=== PATIENT | female | born 1955 | race Caucasian/White ===

== ENCOUNTER 2019-04-04 11:46 | Inpatient (IN) | payer MEDICARE ==
[~2019-04-04] VITALS: Ht 157.5 cm; Wt 88.0 kg
[~2019-04-04 11:46] MED LIST: ADV25050 INH; ALBU8.5H5 IH; CARI350T29 PO; CLOP75TA27 PO; HYDR-762 PO; HYDR25TA6 PO; LISI10TA2 PO; POTA8TAB46 PO; ZOC10 PO; ZOLP5TAB PO
[2019-04-04] MEDS ORDERED: HYDROmorphONE 2 MG/ML SYG IV STA (12:02)
[2019-04-04] MEDS ORDERED: NITROGLYCERIN 2% 1 GM OINT PKT TD STA (12:02)
[2019-04-04] MEDS ORDERED: NITROGLYCERIN (SL) 0.4 MG TAB SL PRN ×2 (12:30→15:00)
[2019-04-04] MEDS ORDERED: ASPI-817 PO (12:37)
[2019-04-04] MEDS ORDERED: LISI1TAB6 PO (12:38)
[2019-04-04] MEDS ORDERED: HYDR-3980 PO (12:38)
[2019-04-04] MEDS ORDERED: CARV3.1260 PO (12:39)
[2019-04-04] MEDS ORDERED: ALBU18HF INHALATION (12:39)
[2019-04-04] MEDS ORDERED: SIMV10TA PO (12:39)
[2019-04-04] MEDS ORDERED: POTA8CAP PO (12:40)
[2019-04-04] MEDS ORDERED: CLOP75TA19 PO (12:40)
[2019-04-04] MEDS ORDERED: DULO60CA59 PO (12:40)
[2019-04-04] MEDS ORDERED: ADV25050 INHALATION (12:41)
[2019-04-04] MEDS ORDERED: ZOLP10TA PO (12:41)
[2019-04-04] MEDS ORDERED: CARI350T29 PO (12:41)
--- NOTE | 2019-04-04 14:27 | ERD ---
ER Documentation Chief Complaint Chief Complaint CHEST PAIN FOR THE PAST FEW HRS, NO N/V. NO SIGNS OF SOB . 12 LEAD HPI Patient is a 63-year-old female with cardiac disease and stent who presents with chest pain. She was brought in by ambulance. She says that the pain is 9 out of 10. She has chest pain as well as midepigastric pain. She was given aspirin nitroglycerin by paramedics without relief. Upon review of old medical records this is the patient's first visit to the emergency department. Review of the emergency department information exchange system shows visits to 4 separate emergency departments for a total of 5 visits over the past 1 year. Her primary doctor is Dr. Beck. ROS All systems reviewed and are negative except as per history of present illness. Medications Home Meds Reported Medications Zolpidem Tartrate* (Ambien*) 10 Mg Tablet, 10 MG PO QHS PRN for INSOMNIA, TAB 04/04/19 Salmeterol Xinaf/Fluticasone* (Advair*) 250-50 Diskus Inhaler, 1 INH INHALATION BID, #1 INHALER 04/04/19 Carisoprodol* (Carisoprodol*) 350 Mg Tablet, 350 MG PO Q8 PRN for MUSCLE SPASMS, TAB 04/04/19 Potassium Chloride* (Potassium Chloride*) 8 Meq Capsule.er, 8 MEQ PO DAILY, CAP 04/04/19 Duloxetine Hcl* (Duloxetine Hcl*) 60 Mg Capsule.dr, 60 MG PO DAILY, #30 CAP 04/04/19 Clopidogrel Bisulfate* (Clopidogrel Bisulfate*) 75 Mg Tablet, 75 MG PO DAILY, #30 TAB 04/04/19 Carvedilol* (Carvedilol*) 3.125 Mg Tablet, 3.125 MG PO BID, #60 TAB 04/04/19 Albuterol Sulfate* (Ventolin HFA*) 18 Gm Hfa.aer.ad, 2 PUFF INHALATION Q4H, #1 INHALER 04/04/19 Simvastatin* (Zocor*) 10 Mg Tablet, 10 MG PO QHS, #30 TAB 04/04/19 Hydrocodone/Acetaminophen ([place] 10-325 Tablet) 1 Each Tablet, 1 EACH PO BID, TAB 04/04/19 Lisinopril/Hydrochlorothiazide (Lisinopril-Hctz 20-12.5 mg Tab) 1 Each Tablet, 1 EACH PO DAILY, TAB 04/04/19 Aspirin* (Aspirin* EC) 81 Mg Tablet.dr, 81 MG PO DAILY, TAB 04/04/19 Discontinued Reported Medications Potassium Chloride (K-Tab ER) 8 Meq Tablet.er, 8 MEQ PO DAILY for 30 Days, #30 02/08/19 Hydrochlorothiazide* (Hydrochlorothiazide*) 25 Mg Tab, 25 MG PO DAILY for 30 Days 02/08/19 Carisoprodol* (Carisoprodol*) 350 Mg Tablet, 350 MG PO DAILY 02/08/19 Zolpidem Tartrate* (Ambien*) 5 Mg Tablet, 5 MG PO HS for INSOMNIA, TAB 05/16/14 Albuterol Sulfate* (Albuterol Sulfate* HFA) 8.5 Gm Hfa.aer.ad, 2 PUFF IH Q6, EA 04/29/14 Salmeterol Xinaf/Fluticasone* (Advair*) 250-50 Diskus Inhaler, 1 PUFF INH BID, INH 04/29/14 Hydrocodone Bit-Acetaminophen* ([place]*) 1 Tab Tablet, 1 TAB PO Q4H PRN for PAIN, TAB 04/29/14 Simvastatin (Simvastatin) 10 Mg Tablet, 10 MG PO HS, TAB 04/29/14 Lisinopril* (Lisinopril*) 10 Mg Tablet, 10 MG PO DAILY, TAB 04/29/14 Clopidogrel Bisulfate (Clopidogrel) 75 Mg Tablet, 75 MG PO DAILY, TAB 04/29/14 Allergies Allergies: Coded Allergies: ciprofloxacin (Unverified Allergy, Severe, 04/04/19) cephalexin (Unverified Allergy, Intermediate, REDNESS, SWELLING, ITCHING, 04/04/19) morphine (Unverified Allergy, Intermediate, RASH, 04/04/19) ondansetron (Unverified Allergy, Mild, ITCHY, 04/04/19) PMhx/Soc History of Surgery: Yes (LUMBAR SURGERY,CARDIAC STENTS X2,HYSTERECTOMY, right carotid endarterectomy) Anesthesia Reaction: No Hx Neurological Disorder: No Hx Respiratory Disorders: Yes (ASTHMA, COPD) Hx Cardiac Disorders: Yes (HTN) Hx Psychiatric Problems: Yes (ANXIETY,DEPRESSION) Hx Miscellaneous Medical Probl: No Hx Alcohol Use: No Hx Substance Use: No Hx Tobacco Use: No Smoking Status: Never smoker FmHx Family History: coronary disease Physical Exam Vitals Vital Signs Date Temp Pulse Resp B/P (MAP) Pulse Ox O2 O2 Flow FiO2 Time Delivery Rate 04/04/19 95 16 125/85 99 Room Air 13:41 (98) 04/04/19 98.5 110 18 95/54 (68) 97 12:02 Physical Exam Const: Moderate distress Head: Atraumatic Eyes: Normal Conjunctiva ENT: Normal External Ears, Nose and Mouth. Neck: Full range of motion. No meningismus. Resp: Clear to auscultation bilaterally Cardio: Regular rate and rhythm, no murmurs Abd: Soft, non tender, non distended. Normal bowel sounds Skin: No petechiae or rashes Back: No midline or flank tenderness Ext: No cyanosis, or edema Neur: Awake and alert Psych: Normal Mood and Affect Result Diagram: 04/04/19 1240 04/04/19 1240 Results 24 hrs Laboratory Tests Test 04/04/19 12:40 White Blood Count 11.3 10^3/ul Red Blood Count 5.25 10^6/ul Hemoglobin 14.0 g/dl Hematocrit 44.0 % Mean Corpuscular Volume 83.8 fl Mean Corpuscular Hemoglobin 26.7 pg Mean Corpuscular Hemoglobin Concent 31.8 g/dl Red Cell Distribution Width 15.9 % Platelet Count 391 10^3/UL Mean Platelet Volume 9.6 fl Immature Granulocytes % 0.500 % Neutrophils % 66.4 % Lymphocytes % 21.9 % Monocytes % 8.0 % Eosinophils % 2.4 % Basophils % 0.8 % Nucleated Red Blood Cells % 0.0 /100WBC Immature Granulocytes # 0.060 10^3/ul Neutrophils # 7.5 10^3/ul Lymphocytes # 2.5 10^3/ul Monocytes # 0.9 10^3/ul Eosinophils # 0.3 10^3/ul Basophils # 0.1 10^3/ul Nucleated Red Blood Cells # 0.0 10^3/ul Sodium Level 138 mmol/L Potassium Level 4.2 mmol/L Chloride Level 103 mmol/L Carbon Dioxide Level 24 mmol/L Anion Gap 11 Blood Urea Nitrogen 14 mg/dl Creatinine 0.62 mg/dl Est Glomerular Filtrat Rate mL/min > 60 mL/min Glucose Level 113 mg/dl Calcium Level 9.6 mg/dl Total Bilirubin 0.5 mg/dl Direct Bilirubin 0.00 mg/dl Indirect Bilirubin 0.5 mg/dl Aspartate Amino Transf (AST/SGOT) 47 IU/L Alanine Aminotransferase (ALT/SGPT) 55 IU/L Alkaline Phosphatase 110 IU/L Troponin I < 0.012 ng/ml Total Protein 8.3 g/dl Albumin 4.3 g/dl Lipase 75 U/L Current Medications Medications Dose Sig/Farrah Start Time Status Last (Trade) Ordered Route PRN Stop Time Admin Dose Reason Admin 1 inch ONCE STAT 04/04/19 DC Nitroglycerin TD 12:02 04/04/19 12:05 (Nitroglyceri n 2% Oint) 1 tab Q5M UP TO 3 04/04/19 Nitroglycerin DOSES PRN 12:30 SL .CHEST (Nitroglyceri PAIN n (Sl Tab) 0.4 Mg) 1 mg ONCE STAT 04/04/19 DC 04/04/19 Hydromorphone IV 12:02 13:15 HCl 04/04/19 12:05 (Dilaudid) 650 mg ER BRIDGE 04/04/19 Acetaminophen PRN PO 14:30 (Tylenol .MILD PAIN 04/05/19 14:29 Tab) 1-3 OR TEMP Procedures/MDM EKG #1 read by me: Rate/Rhythm: Regular rate and rhythm at a normal rate Intervals: Normal Impression: ST depressions diffusely EKG #2 read by me: Rate/Rhythm: Regular rate and rhythm at a normal rate Intervals: Normal Impression: ST depressions diffusely Chest x-ray read by radiology. Patient is a 63-year-old female with cardiac risk factors who presents with chest pain. She has an abnormal EKG with ST depressions. I doubt STEMI but I am concerned about acute coronary syndrome. Initial troponin is negative. She was given aspirin and nitroglycerin by paramedics. I gave her Dilaudid here in the emergency department as she has an allergy to morphine. She will be admitted to the care of Dr. Beck to a telemetry observation bed. I doubt pulmonary embolism, aortic dissection, pneumonia, or pneumothorax. Departure Diagnosis: Primary Impression: Chest pain Chest pain type: unspecified Qualified Codes: R07.9 - Chest pain, unspecified Condition: AUBREY Lobo MD Apr 04, 2019 14:27
[2019-04-04] MEDS ORDERED: ACETAMINOPHEN 325 MG TAB PO PRN ×2 (14:30→15:00)
[2019-04-04] MEDS ORDERED: NACL 0.9% 3 ML SYG IV SCH (15:00)
[2019-04-04] MEDS ORDERED: ALBUTEROL HFA 8 GM INHALER INH PRN (15:00)
[2019-04-04] MEDS ORDERED: DOCUSATE SODIUM 100 MG CAP PO PRN (15:00)
[2019-04-04] MEDS ORDERED: HYDROCODONE/APAP (10/325) TAB PO PRN (15:00)
[2019-04-04] MEDS: ENOXAPARIN 40 MG/0.4 ML SYG SC SCH ×2 (15:10→15:22)
[2019-04-04] MEDS: METOCLOPRAMIDE 10 MG INJ IV PRN (15:10)
[2019-04-04] MEDS: HYDROmorphONE 2 MG/ML SYG IV PRN ×2 (15:13→20:36)
[2019-04-04 17:43] VITALS: PULSE 95
[2019-04-04 17:44] VITALS: BP 135/92; PULSE 94; RESP 20
[2019-04-04 17:46] VITALS: Ht 157.5 cm; Wt 88.0 kg
--- NOTE | 2019-04-04 18:03 | HP ---
DATE OF ADMISSION: 04/04/2019 REASON FOR ADMISSION: Chest pain, rule out acute coronary syndrome. HISTORY OF PRESENT ILLNESS: The patient is a 63-year-old female with history of hypertensio n, dyslipidemia, [place] 9 years ago, status post PCI with 1 stent was placed, former smoker who presents to the emergency department at [facility] complaining of abdominal pain that radiated to the shoulder in the morning with associated dizziness, mild diaphoresis and nausea. The patient was con cerned that she does have extensive cardiac history and family history, so she presented to the [facility] for evaluation. In the ER, the patient was found to have ischemic like EKG showing sinus rhythm with occasional PVCs, septal infarct, age undetermined, ST-T wave abnormality, consider inferior and anterior ischemia. Troponin x1 was negative. It was decided to admit the patient for further care. The patient in the ER received Dilaudid and nitroglycerin patch. Blood pressure was 95/54, pulse 11 0, respirations 18, temperature 98.5, saturation was 97%. The patient states that she was just seen in another emergency department 3 weeks ago and she was admitted for the same and she underwent a str ess test which was negative. The patient cannot recall which hospital. She denies any fever, chills , weakness or numbness. The patient needs further care. PAST MEDICAL HISTORY: Includes hypertension, dyslipidemia, NC, coronary artery disease, status post PCI 9 years ago. PAST SURGICAL HISTORY: Includes: 1. Total abdominal hysterectomy complicated by colonic trauma. 2. Fusion surgery in the L-spine. ALLERGIES: 1. CIPRO. 2. ZOFRAN. 3. MORPHINE. MEDICATIONS: Include the followin. Advair 250/50 one puff b.i.d. 2. Potassium chloride 8 mEq daily. 3. Ambien 10 mg at bedtime p.r.n. 4. [place] 10/325 b.i.d. 5. Duloxetine 60 mg b.i.d. 6. Aspirin 81 mg daily. 7. Zocor 10 mg at bedtime. 8. Lisinopril and hydrochlorothiazide 20/12.5 daily. 9. Coreg 3.125 b.i.d. 10. Plavix 75 mg daily. 11. [place] 350 q.8 p.r.n. 12. Ventolin HFA 2 puffs q.4 p.r.n. SOCIAL HISTORY: She stopped smoking 10 years ago, but did not smoke a lot. Alcohol: Socially. IV drug abuse: Denies. The patient is single. She has 6 kids. The patient is currently disabled due to her heart condition and back pain. FAMILY HISTORY: Mother from [place]. She has 3 brothers who also from heart disease and had he art surgery. Father from colon cancer at age 57. The patient never had a colonoscopy, but she said she had a stool tested for blood and was negative, more likely 2 years ago. REVIEW OF SYSTEMS: Per HPI. PHYSICAL EXAMINATION: VITAL SIGNS: Temperature is 98.5, pulse 95, respirations 16, blood pressure 125/85, saturation 99% o n room air. GENERAL: The patient is in no acute distress. HEENT: Normocephalic, atraumatic. Slightly pale. NECK: No JVD. CARDIOVASCULAR: S1, S2. Regular rate. LUNGS: Clear. ABDOMEN: Soft. Slight epigastric discomfort. EXTREMITIES: There is no clubbing, cyanosis or edema. LABORATORY DATA: White count is 11.3, hemoglobin 14, hematocrit 44, platelet count 391, neutrophils 66%, lymphs 22%. Chemistry: Sodium is 138, potassium 4.2, chloride 103, bicarbonate 24, BUN is 14, creatinine 0.62, glucose of 113. T bilirubin is 0.5, AST slightly elevated at 47, ALT 55, alkaline p hosphatase 110. Troponin negative. Total protein 8.3. Lipase 75. DIAGNOSTIC DATA: Chest x-ray shows no definite abnormalities identified. ASSESSMENT AND PLAN: This is a 63-year-old female with history of coronary artery disease, hypertension, dyslipidemia, presented with somewhat atypical chest pain, basically symptoms of upper abdominal pain radiating to the shoulders which she did had before in the previous myocardial infarct ion. 1. Chest pain, rule out acute coronary syndrome. Serial troponins. The patient does have an ischem ic like EKG. The patient will be placed on nitroglycerin patch, aspirin, beta blockers, statins. Ca rdiology will be consulted. We will obtain a 2D echo. We need to review the patient's recent stress test or workup which was done. Further recommendation per cardiology. 2. Mild leukocytosis with abdominal pain. We will rule out urinary tract infection. Urine studies will be obtained. 3. The patient will be placed on Protonix for gastrointestinal prophylaxis and Lovenox for deep veno us thrombosis prophylaxis. 4. Chronic back pain. Continue p.r.n. [place] and pain control. 5. Depression. Continue Cymbalta. 6. History of chronic obstructive pulmonary disease and/or asthma. Continue Advair. Breathing trish tment p.r.n. will be provided. We will follow closely. Dictated By: PUJA VALDIVIA/MAGGIE Conf#: [id number] DID#: [id number] CC: GURMEET VIVAS MD;*EndCC*
[2019-04-04] MEDS: HYDROCODONE/APAP (5/325) TAB PO PRN (19:00)
--- NOTE | 2019-04-04 19:12 | CONS ---
Assessment/Plan Assessment/Plan Hospital Course (Demo Recall) Chest pain: Appears to be atypical and anginal. Patient also with recent negative stress test. Coronary artery disease with history of AR and PCI 2010 Hypertension Abnormal EKG appears to be chronic is been reported in the previous years as well Asthma probably asthma exacerbation possibly COPD Ex-smoker Dyslipidemia Recommendations: Continue with the Plavix. Risk factor modification including statin to be continued and adjusted to the goal LDL of less than 70 GI work-up as per internal medicine. I will discontinue the Coreg given her active wheezing and pulmonary status. We will rule out for myocardial infarction with serial cardiac enzyme Pulmonary work-up and treatment as per internal medicine. Thank you for his referral. We will continue to follow along with you GURMEET VIVAS MD [facility] Consultation Date/Type/Reason Admit Date/Time Apr 04, 2019 at 14:18 Date of Consultation: Apr 04, 2019 Type of Consult Cardiology Reason for Consultation cp Requesting Provider: PUJA BINGHAM MD Date/Time of Note DATE: 04/04/19 TIME: 19:03 Hx of Present Illness Interventional cardiology consultation note Chief complaint: chest / abd / back pain Reason for consult: chest pain .CAD History of present illness: Thank you for this referral. History was informed the patient will be asked review of the old chart. Discussion with Dr. Bingham and staff. The patient is a 63-year-old female with history of hypertension, asthma dyslipidemia, coronary artery disease status post AR and PCI in 2010 , former smoker who presents to the emergency department at [facility] complaining of epigastric abdominal pain chest pain and back pain. Patient has also been coughing and has been shortness of breath and wheezing. Her chest pain has resolved now. With her cardiac history she has been concerned about her cardiac and came to emergency room. Her old record was reviewed patient has multiple admission to the hospital for chest pain work-up has been negative over the past few years since as far as 2013 that I could go back in our record. She also has had a coronary angiography done apparently a few years ago which was negative at [facility] per review of the old chart. She also reports to me that she has had a stress test in 2 weeks on outside facility which was told was normal as well. He also complains of shortness of breath and cough and wheezing which has been getting worse. PAST MEDICAL HISTORY: Includes hypertension, dyslipidemia, AR, coronary artery disease, status post PCI 9 years ago. Asthma PAST SURGICAL HISTORY: Includes: 1. Total abdominal hysterectomy complicated by colonic trauma. 2. Fusion surgery in the L-spine. ALLERGIES: 1. CIPRO. 2. ZOFRAN. 3. MORPHINE. MEDICATIONS: Include the followin. Advair 250/50 one puff b.i.d. 2. Potassium chloride 8 mEq daily. 3. Ambien 10 mg at bedtime p.r.n. 4. [place] 10/325 b.i.d. 5. Duloxetine 60 mg b.i.d. 6. Aspirin 81 mg daily. 7. Zocor 10 mg at bedtime. 8. Lisinopril and hydrochlorothiazide 20/12.5 daily. 9. Coreg 3.125 b.i.d. 10. Plavix 75 mg daily. 11. Soma 350 q.8 p.r.n. 12. Ventolin HFA 2 puffs q.4 p.r.n. SOCIAL HISTORY: She stopped smoking 10 years ago, but did not smoke a lot. Alcohol: Socially. IV drug abuse: Denies. The patient is single. She has 6 kids. The patient is currently disabled due to her heart condition and back pain. FAMILY HISTORY: Mother from [place]. She has 3 brothers who also from heart disease and had heart surgery. Father from colon cancer at age 57. Review of system: Patient denies all others except for above-mentioned Past Medical History Home Meds Reported Medications Zolpidem Tartrate* (Ambien*) 10 Mg Tablet, 10 MG PO QHS PRN for INSOMNIA, TAB 04/04/19 Salmeterol Xinaf/Fluticasone* (Advair*) 250-50 Diskus Inhaler, 1 INH INHALATION BID, #1 INHALER 04/04/19 Carisoprodol* (Carisoprodol*) 350 Mg Tablet, 350 MG PO Q8 PRN for MUSCLE SPASMS, TAB 04/04/19 Potassium Chloride* (Potassium Chloride*) 8 Meq Capsule.er, 8 MEQ PO DAILY, CAP 04/04/19 Duloxetine Hcl* (Duloxetine Hcl*) 60 Mg Capsule.dr, 60 MG PO DAILY, #30 CAP 04/04/19 Clopidogrel Bisulfate* (Clopidogrel Bisulfate*) 75 Mg Tablet, 75 MG PO DAILY, #30 TAB 04/04/19 Carvedilol* (Carvedilol*) 3.125 Mg Tablet, 3.125 MG PO BID, #60 TAB 04/04/19 Albuterol Sulfate* (Ventolin HFA*) 18 Gm Hfa.aer.ad, 2 PUFF INHALATION Q4H, #1 INHALER 04/04/19 Simvastatin* (Zocor*) 10 Mg Tablet, 10 MG PO QHS, #30 TAB 04/04/19 Hydrocodone/Acetaminophen ([place] 10-325 Tablet) 1 Each Tablet, 1 EACH PO BID, TAB 04/04/19 Lisinopril/Hydrochlorothiazide (Lisinopril-Hctz 20-12.5 mg Tab) 1 Each Tablet, 1 EACH PO DAILY, TAB 04/04/19 Aspirin* (Aspirin* EC) 81 Mg Tablet.dr, 81 MG PO DAILY, TAB 04/04/19 Discontinued Reported Medications Potassium Chloride (K-Tab ER) 8 Meq Tablet.er, 8 MEQ PO DAILY for 30 Days, #30 02/08/19 Hydrochlorothiazide* (Hydrochlorothiazide*) 25 Mg Tab, 25 MG PO DAILY for 30 Days 02/08/19 Carisoprodol* (Carisoprodol*) 350 Mg Tablet, 350 MG PO DAILY 02/08/19 Zolpidem Tartrate* (Ambien*) 5 Mg Tablet, 5 MG PO HS for INSOMNIA, TAB 05/16/14 Albuterol Sulfate* (Albuterol Sulfate* HFA) 8.5 Gm Hfa.aer.ad, 2 PUFF IH Q6, EA 04/29/14 Salmeterol Xinaf/Fluticasone* (Advair*) 250-50 Diskus Inhaler, 1 PUFF INH BID, INH 04/29/14 Hydrocodone Bit-Acetaminophen* ([place]*) 1 Tab Tablet, 1 TAB PO Q4H PRN for PAIN, TAB 04/29/14 Simvastatin (Simvastatin) 10 Mg Tablet, 10 MG PO HS, TAB 04/29/14 Lisinopril* (Lisinopril*) 10 Mg Tablet, 10 MG PO DAILY, TAB 04/29/14 Clopidogrel Bisulfate (Clopidogrel) 75 Mg Tablet, 75 MG PO DAILY, TAB 04/29/14 Medications Current Medications Acetaminophen (Tylenol Tab) 650 mg ER BRIDGE PRN PO .MILD PAIN 1-3 OR TEMP; Start 04/04/19 at 14:30; Stop 04/05/19 at 14:29 IV Flush (NS 3 ml) 3 ml PER PROTOCOL IV ; Start 04/04/19 at 15:00 Lorazepam (Ativan) 0.5 mg Q8H PRN PO .ANXIETY; Start 04/04/19 at 15:00 Metoclopramide HCl (Reglan) 10 mg Q6H PRN IV NAUSEA/VOMITING Last administered on 04/04/19at 15:10; Admin Dose 10 MG; Start 04/04/19 at 15:00 Nitroglycerin (Nitroglycerin (Sl Tab) 0.4 Mg) 1 tab Q5M PRN SL .CHEST PAIN; Start 04/04/19 at 15:00 Acetaminophen (Tylenol Tab) 650 mg Q6H PRN PO .PAIN 1-3 OR TEMP; Start 04/04/19 at 15:00 Acetaminophen/ Hydrocodone Bitart ([place] (5/325)) 1 tab Q6H PRN PO .PAIN 4-6 Last administered on 04/04/19at 19:00; Admin Dose 1 TAB; Start 04/04/19 at 15:00 Docusate Sodium (Colace) 100 mg Q12H PRN PO .CONSTIPATION; Start 04/04/19 at 15:00 Magnesium Hydroxide (Milk Of Mag) 30 ml DAILY PRN PO .CONSTIPATION; Start 04/04/19 at 15:00 Pantoprazole (Protonix Tab) 40 mg DAILY@06 PO ; Start 04/05/19 at 06:00 Enoxaparin Sodium (Lovenox) 40 mg DAILY SC ; Start 04/04/19 at 15:00 Albuterol (Ventolin Hfa) 2 puff Q4H PRN INH sob; Start 04/04/19 at 15:00 Aspirin (Halfprin) 81 mg DAILY PO ; Start 04/05/19 at 09:00 Carisoprodol (Soma) 350 mg Q8 PRN PO MUSCLE SPASMS; Start 04/04/19 at 15:00 Carvedilol (Coreg) 3.125 mg BID PO Last administered on 04/04/19at 15:09; Admin Dose 3.125 MG; Start 04/04/19 at 15:00 Clopidogrel Bisulfate (plaVIX) 75 mg DAILY PO ; Start 04/05/19 at 09:00 Duloxetine HCl (Cymbalta) 60 mg DAILY PO ; Start 04/05/19 at 09:00 Potassium Chloride (Micro-K) 8 meq DAILY PO ; Start 04/05/19 at 09:00 Zolpidem Tartrate (Ambien) 10 mg QHS PRN PO INSOMNIA; Start 04/04/19 at 15:00 Nitroglycerin (Nitroglycerin 0.1 Mg/Hr) 1 patch DAILY TRANSDERM ; Start 04/04/19 at 15:00 Hydromorphone HCl (Dilaudid) 1 mg Q4H PRN IV PAIN LEVEL 7-10 Last administered on 04/04/19at 15:13; Admin Dose 1 MG; Start 04/04/19 at 15:00 Allergies: Coded Allergies: ciprofloxacin (Unverified Allergy, Severe, 04/04/19) cephalexin (Unverified Allergy, Intermediate, REDNESS, SWELLING, ITCHING, 04/04/19) morphine (Unverified Allergy, Intermediate, RASH, 04/04/19) ondansetron (Unverified Allergy, Mild, ITCHY, 04/04/19) enoxaparin (Verified Allergy, Unknown, 04/04/19) Social History Smoking Status: Former smoker Exam/Review of Systems Vital Signs Vitals Vital Signs Date Temp Pulse Resp B/P (MAP) Pulse Ox O2 O2 Flow FiO2 Time Delivery Rate 04/04/19 97.7 94 20 135/92 94 Room Air 17:44 (106) Exam Exam General: no acute distress HEENT: NC/AT. pupils are equal. round. NECK: NO JVD. no stridor. CV: RRR. systolic murmur; no gallop or rubs. PULM:+ wheezing diffusely. GI: SOFT, NT, ND, no rebound or guarding Extremity: trace B/L LE edema. no clubbing. neuro: awake and alert, OX3. Psych: calm and pleasant rectal: deferred EKG was personally reviewed showed normal sinus rhythm. ST-T wave abnormalities with inferolateral ischemia. View of the old chart showed the patient has had a long-standing history of abnormal EKG in the past as well Echocardiogram most recently done in the hospital on 02/05/2019 shows: Normal left ventricular systolic function. Normal left ventricular cavity size. Sigmoid septum. Mild concentric left ventricular hypertrophy. Ejection fraction is visually estimated at 60 %. Tissue Doppler/Mitral Doppler indices are consistent with impaired relaxation (Stage I diastolic dysfunction). Aortic sclerosis without significant stenosis. Unable to obtain RVSP due to minimal presence of tricuspid regurgitation. Normal size and normal respiratory collapse consistent with normal right atrial pressure. Labs Result Diagram: 04/04/19 1240 04/04/19 1240 Results 24hrs Laboratory Tests Test 04/04/19 12:40 White Blood Count 11.3 H Red Blood Count 5.25 Hemoglobin 14.0 Hematocrit 44.0 Mean Corpuscular Volume 83.8 Mean Corpuscular Hemoglobin 26.7 L Mean Corpuscular Hemoglobin Concent 31.8 L Red Cell Distribution Width 15.9 H Platelet Count 391 Mean Platelet Volume 9.6 Immature Granulocytes % 0.500 H Neutrophils % 66.4 Lymphocytes % 21.9 Monocytes % 8.0 Eosinophils % 2.4 Basophils % 0.8 Nucleated Red Blood Cells % 0.0 Immature Granulocytes # 0.060 H Neutrophils # 7.5 Lymphocytes # 2.5 Monocytes # 0.9 Eosinophils # 0.3 Basophils # 0.1 Nucleated Red Blood Cells # 0.0 Sodium Level 138 Potassium Level 4.2 Chloride Level 103 Carbon Dioxide Level 24 Anion Gap 11 Blood Urea Nitrogen 14 Creatinine 0.62 Est Glomerular Filtrat Rate mL/min > 60 Glucose Level 113 Calcium Level 9.6 Total Bilirubin 0.5 Direct Bilirubin 0.00 Indirect Bilirubin 0.5 Aspartate Amino Transf (AST/SGOT) 47 H Alanine Aminotransferase (ALT/SGPT) 55 Alkaline Phosphatase 110 Troponin I < 0.012 Total Protein 8.3 H Albumin 4.3 Lipase 75 Medications Medications Current Medications Acetaminophen (Tylenol Tab) 650 mg ER BRIDGE PRN PO .MILD PAIN 1-3 OR TEMP; Sta rt 04/04/19 at 14:30; Stop 04/05/19 at 14:29 IV Flush (NS 3 ml) 3 ml PER PROTOCOL IV ; Start 04/04/19 at 15:00 Lorazepam (Ativan) 0.5 mg Q8H PRN PO .ANXIETY; Start 04/04/19 at 15:00 Metoclopramide HCl (Reglan) 10 mg Q6H PRN IV NAUSEA/VOMITING Last administered on 04/04/19at 15:10; Admin Dose 10 MG; Start 04/04/19 at 15:00 Nitroglycerin (Nitroglycerin (Sl Tab) 0.4 Mg) 1 tab Q5M PRN SL .CHEST PAIN; Start 04/04/19 at 15:00 Acetaminophen (Tylenol Tab) 650 mg Q6H PRN PO .PAIN 1-3 OR TEMP; Start 04/04/19 at 15:00 Acetaminophen/ Hydrocodone Bitart ([place] (5/325)) 1 tab Q6H PRN PO .PAIN 4-6 Last administered on 04/04/19at 19:00; Admin Dose 1 TAB; Start 04/04/19 at 15:00 Docusate Sodium (Colace) 100 mg Q12H PRN PO .CONSTIPATION; Start 04/04/19 at 15:00 Magnesium Hydroxide (Milk Of Mag) 30 ml DAILY PRN PO .CONSTIPATION; Start 04/04/19 at 15:00 Pantoprazole (Protonix Tab) 40 mg DAILY@06 PO ; Start 04/05/19 at 06:00 Enoxaparin Sodium (Lovenox) 40 mg DAILY SC ; Start 04/04/19 at 15:00 Albuterol (Ventolin Hfa) 2 puff Q4H PRN INH sob; Start 04/04/19 at 15:00 Aspirin (Halfprin) 81 mg DAILY PO ; Start 04/05/19 at 09:00 Carisoprodol (Soma) 350 mg Q8 PRN PO MUSCLE SPASMS; Start 04/04/19 at 15:00 Carvedilol (Coreg) 3.125 mg BID PO Last administered on 04/04/19at 15:09; Admin Dose 3.125 MG; Start 04/04/19 at 15:00 Clopidogrel Bisulfate (plaVIX) 75 mg DAILY PO ; Start 04/05/19 at 09:00 Duloxetine HCl (Cymbalta) 60 mg DAILY PO ; Start 04/05/19 at 09:00 Potassium Chloride (Micro-K) 8 meq DAILY PO ; Start 04/05/19 at 09:00 Zolpidem Tartrate (Ambien) 10 mg QHS PRN PO INSOMNIA; Start 04/04/19 at 15:00 Nitroglycerin (Nitroglycerin 0.1 Mg/Hr) 1 patch DAILY TRANSDERM ; Start 04/04/19 at 15:00 Hydromorphone HCl (Dilaudid) 1 mg Q4H PRN IV PAIN LEVEL 7-10 Last administered on 04/04/19at 15:13; Admin Dose 1 MG; Start 04/04/19 at 15:00 GURMEET VIVAS MD Apr 04, 2019 19:12
[2019-04-04 20:00] VITALS: BP 128/57; PULSE 87; PULSE 91; RESP 18
[2019-04-04] MEDS: ZOLPIDEM 5 MG TAB PO PRN (22:26)
[2019-04-04 23:58] VITALS: BP 138/87; PULSE 103; RESP 20
[2019-04-05] VITALS (10 sets, daily range): BP systolic 120–178; BP diastolic 61–86; PULSE 80–109; RESP 18–19
[2019-04-05] MEDS: CARISOPRODOL 350 MG TAB PO PRN ×2 (01:52→15:48)
[2019-04-05] MEDS: PANTOPRAZOLE (EC) 40 MG TAB PO SCH (06:08)
[2019-04-05] MEDS: HYDROmorphONE 2 MG/ML SYG IV PRN ×4 (06:15→19:59)
--- NOTE | 2019-04-05 07:34 | CONS ---
Consult Date/Type/Reason Admit Date/Time Apr 04, 2019 at 14:18 Initial Consult Date 04/04/19 Type of Consultation: cv Requesting Provider: PUJA BINGHAM MD Date/Time of Note DATE: 04/05/19 TIME: 07:30 Subjective Interventional cardiology follow-up progress Subjective: Discussed with the staff telemetry was reviewed patient remains sinus rhythm. Patient with no chest pain or pressure but does complain of abdominal pain as well as wheezing still. Objective: General: no acute distress HEENT: NC/AT. pupils are equal. round. NECK: NO JVD. no stridor. CV: RRR. systolic murmur; no gallop or rubs. PULM:+ wheezing mild now. GI: SOFT, NT, ND, no rebound or guarding Extremity: trace B/L LE edema. no clubbing. neuro: awake and alert, OX3. Psych: calm and pleasant rectal: deferred EKG was personally reviewed showed normal sinus rhythm. ST-T wave abnormalities with inferolateral ischemia. View of the old chart showed the patient has had a long-standing history of abnormal EKG in the past as well Echocardiogram most recently done in the hospital on 02/05/2019 shows: Normal left ventricular systolic function. Normal left ventricular cavity size. Sigmoid septum. Mild concentric left ventricular hypertrophy. Ejection fraction is visually estimated at 60 %. Tissue Doppler/Mitral Doppler indices are consistent with impaired relaxation (Stage I diastolic dysfunction). Aortic sclerosis without significant stenosis. Unable to obtain RVSP due to minimal presence of tricuspid regurgitation. Normal size and normal respiratory collapse consistent with normal right atrial pressure. Objective Vitals Vital Signs Date Temp Pulse Resp B/P (MAP) Pulse Ox O2 O2 Flow FiO2 Time Delivery Rate 04/05/19 98.7 109 18 136/80 93 Room Air 07:17 (98) Intake and Output 04/04/19 04/04/19 04/05/19 1515:00 23:00 07:00 IntakeIntake Total 400 ml 600 ml BalanceBalance 400 ml 600 ml Results/Medications Result Diagram: 04/05/19 0547 04/04/19 1240 Results 24 hrs Laboratory Tests Test 04/04/19 12:40 04/04/19 18:26 04/05/19 01:00 04/05/19 05:47 White Blood Count 11.3 H 10.2 Red Blood Count 5.25 4.86 Hemoglobin 14.0 13.0 Hematocrit 44.0 41.1 Mean Corpuscular 83.8 84.6 Volume Mean Corpuscular 26.7 L 26.7 L Hemoglobin Mean Corpuscular 31.8 L 31.6 L Hemoglobin Concent Red Cell 15.9 H 15.9 H Distribution Width Platelet Count 391 344 Mean Platelet Volume 9.6 9.9 Immature 0.500 H 0.500 H Granulocytes % Neutrophils % 66.4 55.0 Lymphocytes % 21.9 28.3 Monocytes % 8.0 10.3 Eosinophils % 2.4 5.0 Basophils % 0.8 0.9 Nucleated Red Blood 0.0 0.0 Cells % Immature 0.060 H 0.050 H Granulocytes # Neutrophils # 7.5 5.6 Lymphocytes # 2.5 2.9 Monocytes # 0.9 1.1 H Eosinophils # 0.3 0.5 Basophils # 0.1 0.1 Nucleated Red Blood 0.0 0.0 Cells # Sodium Level 138 Potassium Level 4.2 Chloride Level 103 Carbon Dioxide Level 24 Anion Gap 11 Blood Urea Nitrogen 14 Creatinine 0.62 Est Glomerular > 60 Filtrat Rate mL/min Glucose Level 113 Calcium Level 9.6 Total Bilirubin 0.5 Direct Bilirubin 0.00 Indirect Bilirubin 0.5 Aspartate Amino 47 H Transf (AST/SGOT) Alanine 55 Aminotransferase (AL T/SGPT) Alkaline Phosphatase 110 Troponin I < 0.012 < 0.012 < 0.012 < 0.012 Total Protein 8.3 H Albumin 4.3 Lipase 75 Creatine Kinase 167 136 Creatine Kinase 1.3 1.3 Index Creatinine Kinase MB 2.10 1.77 (Mass) Home Meds Reported Medications Zolpidem Tartrate* (Ambien*) 10 Mg Tablet, 10 MG PO QHS PRN for INSOMNIA, TAB 04/04/19 Salmeterol Xinaf/Fluticasone* (Advair*) 250-50 Diskus Inhaler, 1 INH INHALATION BID, #1 INHALER 04/04/19 Carisoprodol* (Carisoprodol*) 350 Mg Tablet, 350 MG PO Q8 PRN for MUSCLE SPASMS, TAB 04/04/19 Potassium Chloride* (Potassium Chloride*) 8 Meq Capsule.er, 8 MEQ PO DAILY, CAP 04/04/19 Duloxetine Hcl* (Duloxetine Hcl*) 60 Mg Capsule.dr, 60 MG PO DAILY, #30 CAP 04/04/19 Clopidogrel Bisulfate* (Clopidogrel Bisulfate*) 75 Mg Tablet, 75 MG PO DAILY, #30 TAB 04/04/19 Carvedilol* (Carvedilol*) 3.125 Mg Tablet, 3.125 MG PO BID, #60 TAB 04/04/19 Albuterol Sulfate* (Ventolin HFA*) 18 Gm Hfa.aer.ad, 2 PUFF INHALATION Q4H, #1 INHALER 04/04/19 Simvastatin* (Zocor*) 10 Mg Tablet, 10 MG PO QHS, #30 TAB 04/04/19 Hydrocodone/Acetaminophen ([place] 10-325 Tablet) 1 Each Tablet, 1 EACH PO BID, TAB 04/04/19 Lisinopril/Hydrochlorothiazide (Lisinopril-Hctz 20-12.5 mg Tab) 1 Each Tablet, 1 EACH PO DAILY, TAB 04/04/19 Aspirin* (Aspirin* EC) 81 Mg Tablet.dr, 81 MG PO DAILY, TAB 04/04/19 Discontinued Reported Medications Potassium Chloride (K-Tab ER) 8 Meq Tablet.er, 8 MEQ PO DAILY for 30 Days, #30 02/08/19 Hydrochlorothiazide* (Hydrochlorothiazide*) 25 Mg Tab, 25 MG PO DAILY for 30 Days 02/08/19 Carisoprodol* (Carisoprodol*) 350 Mg Tablet, 350 MG PO DAILY 02/08/19 Zolpidem Tartrate* (Ambien*) 5 Mg Tablet, 5 MG PO HS for INSOMNIA, TAB 05/16/14 Albuterol Sulfate* (Albuterol Sulfate* HFA) 8.5 Gm Hfa.aer.ad, 2 PUFF IH Q6, EA 04/29/14 Salmeterol Xinaf/Fluticasone* (Advair*) 250-50 Diskus Inhaler, 1 PUFF INH BID, INH 04/29/14 Hydrocodone Bit-Acetaminophen* ([place]*) 1 Tab Tablet, 1 TAB PO Q4H PRN for PAIN, TAB 04/29/14 Simvastatin (Simvastatin) 10 Mg Tablet, 10 MG PO HS, TAB 04/29/14 Lisinopril* (Lisinopril*) 10 Mg Tablet, 10 MG PO DAILY, TAB 7/15/14 Clopidogrel Bisulfate (Clopidogrel) 75 Mg Tablet, 75 MG PO DAILY, TAB 04/29/14 Medications Current Medications Acetaminophen (Tylenol Tab) 650 mg ER BRIDGE PRN PO .MILD PAIN 1-3 OR TEMP; Start 04/04/19 at 14:30; Stop 04/05/19 at 14:29 IV Flush (NS 3 ml) 3 ml PER PROTOCOL IV ; Start 04/04/19 at 15:00 Lorazepam (Ativan) 0.5 mg Q8H PRN PO .ANXIETY; Start 04/04/19 at 15:00 Metoclopramide HCl (Reglan) 10 mg Q6H PRN IV NAUSEA/VOMITING Last administered on 04/04/19at 15:10; Admin Dose 10 MG; Start 04/04/19 at 15:00 Nitroglycerin (Nitroglycerin (Sl Tab) 0.4 Mg) 1 tab Q5M PRN SL .CHEST PAIN; Start 04/04/19 at 15:00 Acetaminophen (Tylenol Tab) 650 mg Q6H PRN PO .PAIN 1-3 OR TEMP; Start 04/04/19 at 15:00 Acetaminophen/ Hydrocodone Bitart ([place] (5/325)) 1 tab Q6H PRN PO .PAIN 4-6 Last administered on 04/04/19at 19:00; Admin Dose 1 TAB; Start 04/04/19 at 15:00 Docusate Sodium (Colace) 100 mg Q12H PRN PO .CONSTIPATION; Start 04/04/19 at 15:00 Magnesium Hydroxide (Milk Of Mag) 30 ml DAILY PRN PO .CONSTIPATION; Start 04/04/19 at 15:00 Pantoprazole (Protonix Tab) 40 mg DAILY@06 PO Last administered on 04/05/19at 06:08; Admin Dose 40 MG; Start 04/05/19 at 06:00 Enoxaparin Sodium (Lovenox) 40 mg DAILY SC ; Start 04/04/19 at 15:00 Albuterol (Ventolin Hfa) 2 puff Q4H PRN INH sob; Start 04/04/19 at 15:00 Aspirin (Halfprin) 81 mg DAILY PO ; Start 04/05/19 at 09:00 Carisoprodol (Soma) 350 mg Q8 PRN PO MUSCLE SPASMS Last administered on 04/05/19at 01:52; Admin Dose 350 MG; Start 04/04/19 at 15:00 Clopidogrel Bisulfate (plaVIX) 75 mg DAILY PO ; Start 04/05/19 at 09:00 Duloxetine HCl (Cymbalta) 60 mg DAILY PO ; Start 04/05/19 at 09:00 Potassium Chloride (Micro-K) 8 meq DAILY PO ; Start 04/05/19 at 09:00 Zolpidem Tartrate (Ambien) 10 mg QHS PRN PO INSOMNIA Last administered on 04/04/19at 22:26; Admin Dose 10 MG; Start 04/04/19 at 15:00 Nitroglycerin (Nitroglycerin 0.1 Mg/Hr) 1 patch DAILY TRANSDERM ; Start 04/04/19 at 15:00 Hydromorphone HCl (Dilaudid) 1 mg Q4H PRN IV PAIN LEVEL 7-10 Last administered on 04/05/19at 06:15; Admin Dose 1 MG; Start 04/04/19 at 15:00 Assessment/Plan Hospital Course (Demo Recall) chest pain: Appears to be atypical and anginal. Patient also with recent negative stress test. Coronary artery disease with history of [place] and PCI 2010 Hypertension Abnormal EKG appears to be chronic is been reported in the previous years as well Asthma probably asthma exacerbation possibly COPD Ex-smoker Dyslipidemia Recommendations: Continue with the Plavix. Risk factor modification including statin to be c ontinued and adjusted to the goal LDL of less than 70 GI work-up as per internal medicine. I have stopped the Coreg given her active wheezing and pulmonary status. pt was ruled out for myocardial infarction with serial cardiac enzyme Pulmonary work-up and treatment as per internal medicine. Thank you for his referral. We will continue to follow along with you GURMEET VIVAS MD [facility] GURMEET VIVAS MD Apr 05, 2019 07:34
[2019-04-05] MEDS: POTASSIUM CHLORIDE (SR) 8 MEQ CAP PO SCH (08:39)
[2019-04-05] MEDS: ASPIRIN (EC) 81 MG TAB PO SCH (08:39)
[2019-04-05] MEDS: NITROGLYCERIN 0.1 MG/HR PATCH TRANSDERM SCH (08:39)
[2019-04-05] MEDS: CLOPIDOGREL 75 MG TAB PO SCH (08:39)
[2019-04-05] MEDS: DULOXETINE 30 MG CAP DR PO SCH (08:39)
[2019-04-05] MEDS: HYDROCODONE/APAP (5/325) TAB PO PRN (08:48)
[2019-04-05] MEDS: MAGNESIUM HYDROXIDE 30ML CUP PO PRN (10:21)
[2019-04-05] MEDS ORDERED: ALBUTEROL HFA 8 GM INHALER INH PRN (12:30)
[2019-04-05] MEDS ORDERED: ALBUTEROL/IPRATROPIUM (NEB) 3 ML AMP HHN PRN (14:00)
[2019-04-05] MEDS: GUAIFENESIN/CODEINE 5ML CUP PO PRN (14:37)
[2019-04-05] MEDS: METHYLPREDNISOLONE 40 MG INJ IV SCH ×2 (14:37→19:58)
[2019-04-05] MEDS: AZITHROMYCIN 500 MG in SOD CHLORIDE 0.9% 250 ML IVPB SCH (15:48)
[2019-04-05] MEDS: METOPROLOL 25 MG TAB PO SCH (16:48)
[2019-04-05] MEDS: AMLODIPINE 5 MG TAB PO SCH (16:48)
[2019-04-05] MEDS: ALBUTEROL/IPRATROPIUM (NEB) 3 ML AMP HHN SCH ×3 (17:30→20:24)
--- NOTE | 2019-04-05 18:28 | PN ---
DATE: 04/05/2019 SUBJECTIVE: The patient is seen now complaining of cough and wheezing, noted Dr. Ibrahim's recommenda tions. The patient's EKG is abnormal, but this has been like this for many years. The patient recen tly underwent a stress test, which was negative. The patient's troponin remains negative. PHYSICAL EXAMINATION: VITAL SIGNS: Temperature 97.8, pulse 89, respiration 19, blood pressure 126/84 and saturation 93% ro om air. GENERAL: The patient in no acute distress, coughing frequently. CARDIOVASCULAR: S1 and S2. LUNGS: Faint wheezing bilaterally. ABDOMEN: Soft, nontender. EXTREMITIES: No clubbing, cyanosis or edema. LABORATORY DATA: White count is normal at 10.2, hemoglobin 13, hematocrit 41, platelets 344 with nor mal differential. Chemistry: Sodium 139, potassium 4.0, chloride 103, bicarbonate 23, BUN is 14, cr eatinine 0.62, glucose 123. Hemoglobin A1c is 5.5. AST 64, better. ALT is 41, normal. Otherwise, cholesterol 167, LDL 104, HDL 34. TSH is 2.93. The patient's abdominal ultrasound which was done du e to elevated liver enzymes and abdominal pain showed fatty changes of the liver, otherwise unremarka ble abdominal ultrasound. ASSESSMENT AND PLAN: This is a 63-year-old female with history of coronary artery disease, status post PCI, hypertension, dyslipidemia, presented with atypical chest pain, more of abdominal pa in radiating to the chest, now with wheezing and cough, likely possible chronic obstructive pulmonary disease exacerbation and abdominal pain that may be related to her cough. 1. Chest pain. Troponins are negative. EKG: No changes from previous. Continue medical managemen t per cardiology. 2. Cough and wheezing. Treat for COPD exacerbation. The patient will be started on azithromycin, b reathing treatment around the clock and IV Solu-Medrol. Monitor symptoms. Cough suppressant will be provided. 3. Continue Protonix for GI prophylaxis. 4. Chronic back pain. Pain control are being provided. 5. Depression. Continue Cymbalta. 6. Likely discharge planning for tomorrow following above treatment and monitoring. We will follow. Dictated By: PUJA VALDIVIA/MAGGIE Conf#: [id number] DID#: [id number]
[2019-04-05] MEDS: METOCLOPRAMIDE 10 MG INJ IV PRN (19:59)
[2019-04-05] MEDS: ZOLPIDEM 5 MG TAB PO PRN (21:50)
[2019-04-06] VITALS (12 sets, daily range): BP systolic 127–155; BP diastolic 60–84; PULSE 72–95; RESP 18–20
[2019-04-06] MEDS: ALBUTEROL/IPRATROPIUM (NEB) 3 ML AMP HHN SCH ×6 (01:00→20:34)
[2019-04-06] MEDS: METHYLPREDNISOLONE 40 MG INJ IV SCH ×3 (06:34→20:53)
[2019-04-06] MEDS: PANTOPRAZOLE (EC) 40 MG TAB PO SCH (06:34)
[2019-04-06] MEDS: HYDROmorphONE 2 MG/ML SYG IV PRN (08:31)
[2019-04-06] MEDS: ENOXAPARIN 40 MG/0.4 ML SYG SC SCH (09:00)
[2019-04-06] MEDS: NITROGLYCERIN 0.1 MG/HR PATCH TRANSDERM SCH (09:00)
[2019-04-06] MEDS: CLOPIDOGREL 75 MG TAB PO SCH (09:14)
[2019-04-06] MEDS: ASPIRIN (EC) 81 MG TAB PO SCH (09:14)
[2019-04-06] MEDS: DULOXETINE 30 MG CAP DR PO SCH (09:14)
[2019-04-06] MEDS: POTASSIUM CHLORIDE (SR) 8 MEQ CAP PO SCH (09:14)
[2019-04-06] MEDS: METOPROLOL 25 MG TAB PO SCH ×2 (09:15→20:54)
[2019-04-06] MEDS: AMLODIPINE 5 MG TAB PO SCH (09:15)
[2019-04-06] MEDS: CARISOPRODOL 350 MG TAB PO PRN ×2 (09:31→22:56)
[2019-04-06] MEDS: HYDROCODONE/APAP (5/325) TAB PO PRN (10:20)
[2019-04-06] MEDS: HEPARIN 5,000 UNIT/1 ML VIAL SC SCH ×2 (10:23→20:53)
[2019-04-06] MEDS: LORAZEPAM 0.5 MG TAB PO PRN (11:11)
--- NOTE | 2019-04-06 12:03 | PN ---
DATE: 04/06/2019 The patient seen, still has a cough and some wheezing, feeling slightly better. PHYSICAL EXAMINATION: VITAL SIGNS: Temperature 98.2, pulse 95, respirations 20, blood pressure 132/60, saturation 94% on 3 liter nasal cannula. GENERAL: The patient is in no acute distress. CARDIOVASCULAR: S1 and S2. LUNGS: Wheezing and mild rhonchi throughout. ABDOMEN: Soft, nontender. EXTREMITIES: No clubbing, cyanosis, or edema. LABORATORY DATA: No new labs today. MEDICATIONS: 1. DuoNebs every 4 hours. 2. Lopressor 25 b.i.d. 3. Norvasc 5 mg daily. 4. Azithromycin IV daily per pharmacy. 5. Solu-Medrol 40 IV 6. Robitussin p.r.n. 7. Aspirin 81 mg daily. 8. Plavix 75 daily. 9. Cymbalta 60 mg daily. 10. KCl 8 mEq daily. 11. Protonix 40 mg daily. 12. Ativan p.r.n. 13. Reglan p.r.n. 14. Nitroglycerin p.r.n. 15. Orrtanna p.r.n. 16. Colace p.r.n. 17. Lovenox 40 mg subcu daily. Apparently is ALLERGIC TO IT. Will switch to heparin, Soma p.r.n. 18. Ambien p.r.n. 19. Nitroglycerin p.r.n. 20. Dilaudid p.r.n. and will reduce the dose. ASSESSMENT AND PLAN: A 63-year-old female with history of coronary artery disease, status p ost PCI, hypertension, dyslipidemia, presented with atypical chest pain, but with abnormal EKG. Also , wheezing and cough, likely chronic obstructive pulmonary disease exacerbation. 1. Chest pain, likely due to a pulmonary process. Otherwise, will continue with medical management. Cardiology is following. EKG has not changed for many years, per cardiology and troponins are nega tive. 2. Chronic obstructive pulmonary disease exacerbation. Continue antibiotics, steroids and breathing treatment. Change status to inpatient for another day of breathing treatment and steroids, cough mosqueda ppressant is being provided. 3. Chronic pain syndrome. Would use Dilaudid IV. 4. Continue Protonix for gastrointestinal prophylaxis. 5. Depression, on Cymbalta. 6. Out of bed activity is advised. We will follow. DISPOSITION: Soon. Dictated By: PUJA VALDIVIA/MAGGIE Conf#: [id number] DID#: [id number]
[2019-04-06] MEDS: HYDROmorphONE 0.5 MG/0.5 ML SYG IV PRN ×3 (13:00→20:55)
[2019-04-06] MEDS: MAGNESIUM HYDROXIDE 30ML CUP PO PRN (14:01)
[2019-04-06] MEDS: AZITHROMYCIN 500 MG in SOD CHLORIDE 0.9% 250 ML IVPB SCH (15:11)
[2019-04-06] MEDS: METOCLOPRAMIDE 10 MG INJ IV PRN (17:07)
[2019-04-06] MEDS: GUAIFENESIN/CODEINE 5ML CUP PO PRN (17:48)
[2019-04-06] MEDS: ZOLPIDEM 5 MG TAB PO PRN (22:56)
[2019-04-07] VITALS (11 sets, daily range): BP systolic 106–141; BP diastolic 54–75; PULSE 77–98; RESP 17–18
[2019-04-07] MEDS: ALBUTEROL/IPRATROPIUM (NEB) 3 ML AMP HHN SCH ×6 (01:00→21:00)
[2019-04-07] MEDS: METHYLPREDNISOLONE 40 MG INJ IV SCH ×3 (06:14→20:55)
[2019-04-07] MEDS: PANTOPRAZOLE (EC) 40 MG TAB PO SCH (06:14)
[2019-04-07] MEDS: HYDROmorphONE 0.5 MG/0.5 ML SYG IV PRN ×4 (06:15→20:57)
[2019-04-07] MEDS: HYDROCODONE/APAP (5/325) TAB PO PRN ×2 (08:12→18:13)
[2019-04-07] MEDS: NITROGLYCERIN 0.1 MG/HR PATCH TRANSDERM SCH (08:54)
[2019-04-07] MEDS: DULOXETINE 30 MG CAP DR PO SCH (08:57)
[2019-04-07] MEDS: METOPROLOL 25 MG TAB PO SCH ×2 (08:57→20:56)
[2019-04-07] MEDS: CLOPIDOGREL 75 MG TAB PO SCH (08:57)
[2019-04-07] MEDS: POTASSIUM CHLORIDE (SR) 8 MEQ CAP PO SCH (08:58)
[2019-04-07] MEDS: ASPIRIN (EC) 81 MG TAB PO SCH (08:58)
[2019-04-07] MEDS ORDERED: AMLODIPINE 2.5 MG TAB PO SCH (09:00)
[2019-04-07] MEDS: HEPARIN 5,000 UNIT/1 ML VIAL SC SCH ×2 (09:03→20:55)
[2019-04-07] MEDS: LORAZEPAM 0.5 MG TAB PO PRN (11:44)
--- NOTE | 2019-04-07 12:54 | PDOCDIS ---
Discharge Instructions CONDITION [id number] Patient Condition: [id number] Stable ACTIVITY: [id number] Activity Restrictions: [id number] Slowly Increase Activity FOLLOW UP/APPOINTMENTS Follow-up Plan see prescriptions, follow up with PCP and pain specialist PUJA BINGHAM MD Apr 07, 2019 12:54
[2019-04-07] MEDS ORDERED: HYDR-3980 PO (13:00)
[2019-04-07] MEDS ORDERED: MED4DP PO (13:00)
[2019-04-07] MEDS ORDERED: SULF-182 PO (13:00)
[2019-04-07] MEDS ORDERED: LORA1TAB PO (13:00)
[2019-04-07] MEDS: TRIMETHOPRIM/SULFAMETHOX (DS) TAB PO SCH ×2 (13:58→20:56)
[2019-04-07] MEDS: CARISOPRODOL 350 MG TAB PO PRN (15:33)
[2019-04-07] MEDS: AZITHROMYCIN 500 MG in SOD CHLORIDE 0.9% 250 ML IVPB SCH (15:33)
[2019-04-07] MEDS: METOCLOPRAMIDE 10 MG INJ IV PRN (20:55)
--- NOTE | 2019-04-07 21:16 | DS ---
DATE OF ADMISSION: 04/06/2019 DATE OF DISCHARGE: 04/07/2019 REASON FOR ADMISSION: Chest pain, rule out acute coronary syndrome. HOSPITAL COURSE: The patient is a 63-year-old female with history of hypertension, dyslipid em[place], [place] 9 years ago, status post PCI and stent placement. She is a former smoker and now presented to [facility], continued to have abdominal pain radiating to the shoulders and carlos eduardo g to the chest, also with associated dizziness, mild diaphoresis and nausea. EKG shows occasional PV Cs, septal infarct and ST-T abnormality, consider inferior and anterior ischemia. Troponin was negat chaparrita. Ultimately, she was admitted to rule out acute coronary syndrome, but unfortunately she also wa s noted to have wheezing and cough likely acute bronchitis and COPD exacerbation. Ultimately, the pa robbi was started on breathing treatments round the clock, steroids with Solu-Medrol and antibiotic w ith azithromycin. Urinalysis was obtained in the ER was negative, but urine culture shows greater th an 100,000 E. coli, almost pansensitive, only resistant to ampicillin. THE PATIENT DOES HAVE ALLERGI ES TO CEPHALOSPORINS AND QUINOLONES, so we will start her on Bactrim upon discharge. During her stay , she was on azithromycin for acute bronchitis. Serial troponins were all negative. Dr. Ibrahim was consulted and he stated that the EKG has not changed for many years. The patient recently underwent cardiac workup and stress test which was negative, so no further cardiac workup is currently needed. The patient received breathing treatment and overall feeling much better. Blood pressure is 134/67 , pulse 77, respirations 18, saturation 94% on room air, temperature 98.1. DISCHARGE MEDICATIONS: The patient can be discharged with the following medications: 1. Lorazepam 1 mg b.i.d. p.r.n. for anxiety. 2. Medrol Dosepak 6 days as directed. 3. Bactrim-DS 1 tab b.i.d. for 5 days. 4. Breathing treatment as directed with Ventolin. 5. Aspirin 81 mg daily. 6. Soma 350 q.8 p.r.n. for muscle spasm. 7. Coreg 3.125 b.i.d. 8. Plavix 75 mg daily. 9. Duloxetine 60 mg daily. 10. Lisinopril/hydrochlorothiazide 20/12.5 daily. 11. Potassium chloride 8 mEq daily. 12. Advair 250/50 twice a day. 13. Simvastatin 10 mg daily. 14. Zolpidem 10 mg at bedtime p.r.n. insomnia. 15. [place] 10/325 b.i.d. p.r.n. for moderate pain. The patient has back pain, sciatica. Definitely, she needs to see a pain specialist. During her sta y, she did not require pain meds. FINAL DIAGNOSES: 1. Chest pain, rule out acute coronary syndrome. 2. Abnormal EKG chronic changes. 3. Chronic obstructive pulmonary disease exacerbation. 4. Acute bronchitis. 5. Chronic pain syndrome. 6. Low back pain. 7. Sciatica. 8. Anxiety disorder. 9. Rule out restless leg syndrome. 10. Depression. 11. Urinary tract infection organism Escherichia coli. The patient does need to follow up with PCP and pain specialist. Any change in condition, call 911. [address] Ibrahim, cardiology input and recommendations. Case was discussed with the patient regarding plan of care. The patient is to be discharged in fair condition. Dictated By: PUJA VALDIVIA/NTS Conf#: [id number] DID#: [id number] CC: GURMEET IBRAHIM MD;*End*
[2019-04-07] MEDS: ZOLPIDEM 5 MG TAB PO PRN (23:22)
[2019-04-08] VITALS: BP 123/62; PULSE 68; RESP 18
[2019-04-08 00:40] VITALS: PULSE 72
[2019-04-08] MEDS: ALBUTEROL/IPRATROPIUM (NEB) 3 ML AMP HHN SCH ×2 (01:00→05:00)
[2019-04-08 04:00] VITALS: BP 153/73; PULSE 77; RESP 20
[2019-04-08 05:27] VITALS: PULSE 73
[2019-04-08] MEDS: HYDROmorphONE 0.5 MG/0.5 ML SYG IV PRN (06:25)
[2019-04-08] MEDS: PANTOPRAZOLE (EC) 40 MG TAB PO SCH (06:50)
[2019-04-08] MEDS: METHYLPREDNISOLONE 40 MG INJ IV SCH (06:50)
[2019-04-08 07:15] VITALS: BP 176/64; PULSE 98; RESP 20
--- NOTE | 2019-04-08 08:03 | RADRPT ---
Echocardiogram Report Preliminary Patient Name: LACI ESPINOSAatient ID: [id number] : 1955 (63y 7m)Study Date: 04/04/2019 4:15:41 PM Gender: FAccession #: [id number] Tech: Location: [facility] Ref.Physician: PUJA BINGHAM Height(Cm): BSA: Weight(Kg): Quality: AdequateAccount #: [id number] Procedures: Echocardiographic Report: Transthoracic echocardiogram with complete 2D, M-Mode imaging. Indications: Evaluate Left Ventricular function. Measurements: 2D/M Mode Measurement Value Normal Range LVIDd 2D 2.5 [ 3.8 - 5.2 ] cm LVIDs 2D 1.7 [ 2.2 - 3.5 ] cm IVSd 2D 1.5 [ 0.6 - 0.9 ] cm Findings: Left Ventricle: Normal left ventricular systolic function. Normal left ventricular cavity size. Moderate concentric left ventricular hypertrophy. Ejection fraction is visually estimated at 60-65 %. Right Ventricle: Normal right ventricular size. Normal right ventricular systolic function. Left Atrium: The left atrium is normal in size. Right Atrium: The right atrium is normal in size. Mitral Valve: Normal appearance of the mitral valve. Aortic Valve: Aortic valve not well visualized. Tricuspid Valve: Tricuspid valve not well visualized. Pulmonic Valve: Pulmonic valve not well visualized. Pericardium: Normal pericardium with no significant pericardial effusion. Aorta: Normal aortic root. IVC: Normal size and normal respiratory collapse consistent with normal right atrial pressure. Conclusions: Normal left ventricular systolic function. Normal left ventricular cavity size. Moderate concentric left ventricular hypertrophy. Ejection fraction is visually estimated at 60-65 %. limited study. Electronically Signed By: Prosper Ibrahim 2019-04-05 07:50:12 PDT
== END 2019-04-08 08:16 | disposition home or self-care (01) | DRG 313 ==
LOC: E/R 11:46 → TEL 14:18 → OBSVTOIN 04-06 09:48
PROVIDERS: ADMIT Internal Medicine; ATTEND Internal Medicine
DX: R07.89 Other chest pain (principal); I24.9 Acute ischemic heart disease, unspecified; J44.1 Chronic obstructive pulmonary disease with (acute) exacerbation; J45.901 Unspecified asthma with (acute) exacerbation; N39.0 Urinary tract infection, site not specified; I25.119 Atherosclerotic heart disease of native coronary artery with unspecified angina pectoris; I10 Essential (primary) hypertension; E78.5 Hyperlipidemia, unspecified; D72.829 Elevated white blood cell count, unspecified; F32.9 Major depressive disorder, single episode, unspecified; F41.9 Anxiety disorder, unspecified; J20.9 Acute bronchitis, unspecified; G89.4 Chronic pain syndrome; M54.30 Sciatica, unspecified side; I25.2 Old myocardial infarction; Z95.5 Presence of coronary angioplasty implant and graft; B96.20 Unspecified Escherichia coli [E. coli] as the cause of diseases classified elsewhere; Z87.891 Personal history of nicotine dependence
CPT/HCPCS: 71045; 76700; 80048; 80053; 80061; 80076; 81003; 82550; 82553; 83036; 83690; 84443; 84484; 85025; 87086; 93005; 93308; 94640; 94664; 96374; G0378; J0456; J1170; J1644; J1650; J2765; J2920; J7050

== ENCOUNTER 2019-04-14 20:25 | Emergency (ER) | payer MEDICARE ==
[~2019-04-14] VITALS: Ht 157.5 cm; Wt 86.0 kg
[~2019-04-14 20:25] MED LIST changes: +ADV25050 INHALATION; +ALBU18HF INHALATION; +ASPI-817 PO; +CARV3.1260 PO; +CLOP75TA19 PO; +DULO60CA59 PO; +HYDR-3980 PO; +LISI1TAB6 PO; +LORA1TAB PO; +MED4DP PO; +POTA8CAP PO; +SIMV10TA PO; +SULF-182 PO; +ZOLP10TA PO
[2019-04-14 20:33] VITALS: Ht 157.5 cm; Wt 86.0 kg
--- NOTE | 2019-04-14 21:43 | ERD ---
ER Documentation Chief Complaint Chief Complaint CP, AP X'S 1 DAY HPI 63-year-old female with history of hypertension, coronary artery disease and [place] 9 years ago status post PCI and stent, hyperlipidemia, chronic pain syndrome, sciatica, anxiety, depression, restless leg syndrome, UTI and recent hospitalization for chest pain during which ACS was ruled out presents the ED complaining of 2-day history of worsening, crampy, generalized, moderate to severe abdominal pain which radiates up to her chest. Nausea but no vomiting, d iarrhea or constipation. Denies shortness of breath or cough. No relieving or exacerbating factors. Denies dysuria, polyuria, hematuria or flank pain. No fevers or chills. ROS All systems reviewed and are negative except as per history of present illness. Medications Home Meds Active Scripts Lorazepam* (Lorazepam*) 1 Mg Tablet, 1 MG PO BID PRN for ANXIETY, #20 TAB Prov:PUJA BINGHAM MD 04/07/19 Sulfamethoxazole/Trimethoprim (Sulfamethoxazole-Tmp Ds Tablet) 1 Each Tablet, 1 TAB PO BID for 5 Days, #10 TAB Prov:PUJA BINGHAM MD 04/07/19 Methylprednisolone* (Medrol* DOSE PACK) 4 Mg/Dose-Pack Tab.ds.pk, 4 MG PO . DIRECTED for 6 Days, PACKET Prov:PUJA BINGHAM MD 04/07/19 Hydrocodone/Acetaminophen ([place] 10-325 Tablet) 1 Each Tablet, 1 EACH PO BID PRN for PAIN LEVEL 6-10, #30 TAB Prov:PUJA BINGHAM MD 04/07/19 Reported Medications Zolpidem Tartrate* (Ambien*) 10 Mg Tablet, 10 MG PO QHS PRN for INSOMNIA, TAB 04/04/19 Salmeterol Xinaf/Fluticasone* (Advair*) 250-50 Diskus Inhaler, 1 INH INHALATION BID, #1 INHALER 04/04/19 Carisoprodol* (Carisoprodol*) 350 Mg Tablet, 350 MG PO Q8 PRN for MUSCLE SPASMS, TAB 04/04/19 Potassium Chloride* (Potassium Chloride*) 8 Meq Capsule.er, 8 MEQ PO DAILY, CAP 04/04/19 Duloxetine Hcl* (Duloxetine Hcl*) 60 Mg Capsule.dr, 60 MG PO DAILY, #30 CAP 04/04/19 Clopidogrel Bisulfate* (Clopidogrel Bisulfate*) 75 Mg Tablet, 75 MG PO DAILY, #30 TAB 04/04/19 Carvedilol* (Carvedilol*) 3.125 Mg Tablet, 3.125 MG PO BID, #60 TAB 04/04/19 Albuterol Sulfate* (Ventolin HFA*) 18 Gm Hfa.aer.ad, 2 PUFF INHALATION Q4H, #1 INHALER 04/04/19 Simvastatin* (Zocor*) 10 Mg Tablet, 10 MG PO QHS, #30 TAB 04/04/19 Lisinopril/Hydrochlorothiazide (Lisinopril-Hctz 20-12.5 mg Tab) 1 Each Tablet, 1 EACH PO DAILY, TAB 04/04/19 Aspirin* (Aspirin* EC) 81 Mg Tablet.dr, 81 MG PO DAILY, TAB 04/04/19 Allergies Allergies: Coded Allergies: ciprofloxacin (Unverified Allergy, Severe, 04/04/19) cephalexin (Unverified Allergy, Intermediate, REDNESS, SWELLING, ITCHING, 04/04/19) morphine (Unverified Allergy, Intermediate, RASH, 04/04/19) ondansetron (Unverified Allergy, Mild, ITCHY, 04/04/19) enoxaparin (Verified Allergy, Unknown, 04/04/19) PMhx/Soc Reviewed. As per HPI. History of Surgery: Yes (lumbar, cardiac stents, hysterectomy, right carotid endarterectomy) Anesthesia Reaction: No Hx Neurological Disorder: No Hx Respiratory Disorders: No (ASTHMA) Hx Cardiac Disorders: Yes (stents, HTN, ) Hx Psychiatric Problems: No Hx Miscellaneous Medical Probl: No Hx Alcohol Use: No Hx Substance Use: No Hx Tobacco Use: No Smoking Status: Unknown if ever smoked FmHx No family history relevant to presenting complaint Physical Exam Vitals Vital Signs Date Temp Pulse Resp B/P (MAP) Pulse Ox O2 O2 Flow FiO2 Time Delivery Rate 04/15/19 93 18 119/74 98 Room Air 01:54 (89) 04/14/19 98.4 98 18 112/78 98 Room Air 21:38 (89) 04/14/19 98.7 107 18 121/77 98 20:33 (92) Physical Exam Const: Alert, anxious, moderate distress Head: Atraumatic Eyes: Anicteric. Normal Conjunctiva ENT: Normal External Ears, Nose and Mouth. MM moist. Neck: Full range of motion. No lymphadenopathy or tenderness. Resp: BS equal and clear to auscultation bilaterally. No rales, rhonchi or wheezes. Cardio: Regular rate and rhythm, no murmurs, gallops or rubs. Abd: Soft, obese, mild, generalized tenderness but no rebound or guarding. Non distended. No McBurney's point tenderness or Miles sign. No masses. Normal bowel sounds Skin: No petechiae or rashes Back: No midline bony tenderness or paraspinal muscle spasm. No CVA tenderness. Ext: No cyanosis, or edema. Pulses equal in all extremities. No calf tenderness. Neur: Awake and alert. No focal deficit. Psych: Anxious but not depressed. Result Diagram: 04/14/19213504/14/192135 Results 24 hrs Laboratory Tests Test 04/14/19 21:36 White Blood Count 15.0 10^3/ul Red Blood Count 4.82 10^6/ul Hemoglobin 12.9 g/dl Hematocrit 40.1 % Mean Corpuscular Volume 83.2 fl Mean Corpuscular Hemoglobin 26.8 pg Mean Corpuscular Hemoglobin Concent 32.2 g/dl Red Cell Distribution Width 15.8 % Platelet Count 455 10^3/UL Mean Platelet Volume 9.6 fl Immature Granulocytes % 1.900 % Neutrophils % 48.9 % Lymphocytes % 34.7 % Monocytes % 10.6 % Eosinophils % 3.3 % Basophils % 0.6 % Nucleated Red Blood Cells % 0.0 /100WBC Immature Granulocytes # 0.290 10^3/ul Neutrophils # 7.3 10^3/ul Lymphocytes # 5.2 10^3/ul Monocytes # 1.6 10^3/ul Eosinophils # 0.5 10^3/ul Basophils # 0.1 10^3/ul Nucleated Red Blood Cells # 0.0 10^3/ul Urine Color YELLOW Urine Clarity SLIGHTLY CLOUDY Urine pH 5.0 Urine Specific [place] 1.020 Urine Ketones NEGATIVE mg/dL Urine Nitrite NEGATIVE mg/dL Urine Bilirubin NEGATIVE mg/dL Urine Urobilinogen NEGATIVE mg/dL Urine Leukocyte Esterase 2+ Jannette/ul Urine Microscopic RBC 1 /HPF Urine Microscopic WBC 7 /HPF Urine Squamous Epithelial Cells FEW /HPF Urine Hyaline Casts FEW /HPF Urine Mucus FEW /HPF Urine Hemoglobin NEGATIVE mg/dL Urine Glucose NEGATIVE mg/dL Urine Total Protein NEGATIVE mg/dl Sodium Level 135 mmol/L Potassium Level 3.9 mmol/L Chloride Level 95 mmol/L Carbon Dioxide Level 30 mmol/L Anion Gap 10 Blood Urea Nitrogen 18 mg/dl Creatinine 1.16 mg/dl Est Glomerular Filtrat Rate mL/min 47 mL/min Glucose Level 103 mg/dl Calcium Level 9.7 mg/dl Troponin I < 0.012 ng/ml Lipase 68 U/L Current Medications Medications Dose Sig/Farrah Start Time Status Last (Trade) Ordered Route PRN Stop Time Admin Dose Reason Admin Sodium 500 ml @ Q1H STAT 04/14/19 DC 04/14/19 Chloride 500 mls/hr IV 22:30 23:16 04/14/19 23:29 IV Flush 10 ml STK-MED 04/14/19 DC 04/14/19 (NS 10 ml) ONCE .ROUTE 22:46 22:46 04/14/19 22:47 Sodium 100 ml @ ud STK-MED 04/14/19 DC 04/14/19 Chloride ONCE .ROUTE 22:46 22:46 04/14/19 22:47 Iodixanol 100 ml STK-MED 04/14/19 DC 04/14/19 (Visipaque ONCE .ROUTE 22:46 22:46 Locm) 04/14/19 22:47 Morphine 4 mg ONCE STAT 04/14/19 DC 04/14/19 Sulfate IV 22:57 23:17 (morphine) 04/14/19 22:58 50 mg ONCE ONCE 04/14/19 DC 04/14/19 Diphenhydrami IV 23:00 23:17 ne HCl 04/14/19 23:01 (Benadryl) Procedures/MDM DOCUMENTS REVIEWED: ED nurse, prior ED, prior records including recent admission 04/06 through 04/07/2019 for chest pain and ACS ruled out. EKG: Time: 2037. Sinus rhythm. Ventricular rate 99. Normal FL QRS. Diffuse inferior and lateral ST depressions but no acute ST elevations. No ectopy. EKG is unchanged from 04/04/2019. My Interpretation IMAGING: Chest AP portable. The cardiac silhouette is normal. The costophrenic angles are clear. No effusions or infiltrates. Atherosclerotic aorta. PROCEDURE: CT Abdomen and Pelvis with IV contrast. CLINICAL INDICATION: Pain. TECHNIQUE: CT scan of the abdomen and pelvis was performed on a multidetector slice CT scanner. 100 cc of Visipaque 320 intravenous contrast material was utilized. Sagittal and coronal reformatted images were obtained from the axial source images. Images were reviewed on a high-resolution PACS workstation. Exam CTDlvol = 21 mGy and DLP = 1256 Gy-cm. One of the following 3 dose reduction techniques were used: Automated exposure control; adjustment of the mA and/or kV according to patient size; or use of iterative reconstruction technique. DICOM images are available. COMPARISON: Ultrasound abdomen 04/04/2019 FINDINGS: There is a fat containing periumbilical hernia. There is a moderate-sized fat containing infraumbilical ventral hernia. There is no bowel obstruction or ileus. The appendix is visualized and normal in size and appearance without evidence for appendicitis. There is no evidence for diverticulitis. There is no free fluid. The liver is overall normal in size. Liver is hypodense/fatty. No intrahepatic lesions are identified. The gallbladder is normal in appearance. There is no definite biliary ductal dilation. Pancreas is normal in appearance. The spleen is unremarkable. There are no adrenal masses. The aorta is normal caliber. There are mild atherosclerotic vascular calcifications. Kidneys are normal in appearance without hydronephrosis, mass or calculus. There is no perinephric collection. Ureters are of normal caliber and without evidence for an obstructing calculus. The urinary bladder is normal in appearance. The uterus and ovaries are not identified. Limited evaluation of the lung bases demonstrates bibasilar atelectasis per There are degenerative changes of the lumbar spine. There is a levoscoliosis with a 9.4 mm left lateral subluxation of L3 on L4 and a 7 mm anterior subluxation L4 on L5.. There are metal posterior spinous process fusion plates and L3-4, and L4-5. IMPRESSION: 1. No bowel obstruction or ileus. Fat containing periumbilical and infraumbilical ventral hernias. 2. No evidence for diverticulitis. 3. No evidence for appendicitis. 4. No obstructive uropathy. 5. Fatty liver. 6. Status post hysterectomy. 7. Scoliosis with multilevel degenerative changes lumbar spine. Posterior metal fusion plates at the spinous process of L3-4 L4-5. 8. Bibasilar atelectasis. RPTAT: HMVK .Noah Perez MD, MD Date Time Electronically viewed and signed by .Noah Perez MD, on 04/14/2019 23:57 .K/ CALLS/CONSULTATIONS: Time:00:08. Dr Maite Bingham. Presentation, physical exam, labs and imaging study findings discussed. Recommends discharge with outpatient follow-up in his office tomorrow. MEDICAL DECISION MAKIN-year-old female with history of hypertension, co ronary artery disease and [place] 9 years ago status post PCI and stent, hyperlipidemia, chronic pain syndrome, sciatica, anxiety, depression, restless leg syndrome, UTI and recent hospitalization for chest pain during which ACS was ruled out presents the ED for evaluation of abdominal pain. CBC reveals mild leukocytosis but no anemia. Chemistry significant for borderline elevated creatinine but no electrolyte abnormalities or hyperglycemia. Lipase is not elevated or consistent with pancreatitis. EKG is abnormal but unchanged from prior. Troponin is not elevated. Patient has had a recent extensive cardiac evaluation which was negative. Patient treated with intravenous hydration, morphine [address] of the abdomen and pelvis with intravenous contrast to evaluate for an acute intra-abdominal process including but not limited to appendicitis, diverticulitis, mesenteric ischemia, abdominal aortic aneurysm, bowel obstruction and obstructive uropathy significant for ventral and periumbilical fat containing hernias but no signs of acute disease. Discussed with patient's PMD Dr. Bingham. Patient has a long history of chronic pain. Recommends discharge with outpatient follow-up. Patient presents with abdominal pain of uncertain etiology. Abdominal exam essentially benign without rebound, guarding or signs of peritonitis. Possible GERD/gastritis. In the absence of signs of serious, acute disease she is stable for discharge with precautionary instructions and outpatient follow-up as counseled. Stable for discharge with precautionary instructions and outpatient follow-up as counseled. Counseled patient regarding diagnostic workup, diagnosis and need for followup. Understands to return to ED if symptoms recur, worsen or any other concerns. Departure Diagnosis: Primary Impression: Acute generalized abdominal pain Additional Impressions: Chronic pain Chronic pain type: other chronic pain Qualified Codes: G89.29 - Other chronic pain H/O heart artery stent Abnormal EKG Condition: Stable (improved) JIM ANNA MD Apr 14, 2019 21:43
[2019-04-14] MEDS ORDERED: SOD CHLORIDE 0.9% 500 ML IV STA (22:30)
[2019-04-14] MEDS ORDERED: IODIXANOL LOCM 100 ML BTL ONE (22:46)
[2019-04-14] MEDS ORDERED: SOD CHLORIDE 0.9% 100 ML ONE (22:46)
[2019-04-14] MEDS ORDERED: morphine 4 MG/ML VIAL IV STA (22:57)
[2019-04-14] MEDS ORDERED: DIPHENHYDRAMINE 50 MG INJ IV ONE (23:00)
[2019-04-15 01:54] VITALS: BP 119/74; PULSE 93; RESP 18
== END 2019-04-15 01:55 | disposition home or self-care (01) ==
LOC: E/R 20:25
DX: R10.84 Generalized abdominal pain (principal); I25.10 Atherosclerotic heart disease of native coronary artery without angina pectoris; I10 Essential (primary) hypertension; J45.909 Unspecified asthma, uncomplicated; Z79.82 Long term (current) use of aspirin; Z98.61 Coronary angioplasty status
CPT/HCPCS: 36415; 71045; 74177; 80048; 81001; 83690; 84484; 85025; 93005; 96374; 96375; 99285; J1200; J2270; J7040; Q9967

== ENCOUNTER 2019-04-16 20:13 | Inpatient (IN) | payer MEDICARE ==
[~2019-04-16] VITALS: Ht 157.5 cm; Wt 87.4 kg
[~2019-04-16 20:13] MED LIST changes: -ADV25050 INH; -ALBU8.5H5 IH; -CLOP75TA27 PO; -HYDR-762 PO; -HYDR25TA6 PO; -LISI10TA2 PO; -POTA8TAB46 PO; -ZOC10 PO; -ZOLP5TAB PO
--- NOTE | 2019-04-16 21:13 | ERD ---
ER Documentation Chief Complaint Chief Complaint AP/CP for a few days w/ n/v/black stools, recently admitted for e coli UTI HPI This is a 63-year-old woman complaining of continued dysuria, increased urinary frequency and urinary hesitancy. She states last week she was admitted into another hospital and treated initially with IV ceftriaxone and then discharged with a prescription for cephalexin, seems at some point her primary care physician Dr. Beck also treated with oral trimethoprim sulfamethoxazole. She states she used oral antibiotics as prescribed but has continued symptoms. She states today she developed pressure-like chest discomfort which was nonradiating and nonexertional. Patient denies hematuria, no fevers or chills, no vomiting or diarrhea. ROS All systems reviewed and are negative except as per history of present illness. Medications Home Meds Active Scripts Lorazepam* (Lorazepam*) 1 Mg Tablet, 1 MG PO BID PRN for ANXIETY, #20 TAB Prov:PUJA BECK MD 04/07/19 Hydrocodone/Acetaminophen ([place] 10-325 Tablet) 1 Each Tablet, 1 EACH PO BID PRN for PAIN LEVEL 6-10, #30 TAB Prov:PUJA BECK MD 04/07/19 Reported Medications Zolpidem Tartrate* (Ambien*) 10 Mg Tablet, 10 MG PO QHS PRN for INSOMNIA, TAB 04/04/19 Salmeterol Xinaf/Fluticasone* (Advair*) 250-50 Diskus Inhaler, 1 INH INHALATION BID, #1 INHALER 04/04/19 Carisoprodol* (Carisoprodol*) 350 Mg Tablet, 350 MG PO Q8 PRN for MUSCLE SPASMS, TAB 04/04/19 Potassium Chloride* (Potassium Chloride*) 8 Meq Capsule.er, 8 MEQ PO DAILY, CAP 04/04/19 Duloxetine Hcl* (Duloxetine Hcl*) 60 Mg Capsule.dr, 60 MG PO DAILY, #30 CAP 04/04/19 Clopidogrel Bisulfate* (Clopidogrel Bisulfate*) 75 Mg Tablet, 75 MG PO DAILY, #30 TAB 04/04/19 Carvedilol* (Carvedilol*) 3.125 Mg Tablet, 3.125 MG PO BID, #60 TAB 04/04/19 Albuterol Sulfate* (Ventolin HFA*) 18 Gm Hfa.aer.ad, 2 PUFF INHALATION Q4H, #1 INHALER 04/04/19 Simvastatin* (Zocor*) 10 Mg Tablet, 10 MG PO QHS, #30 TAB 04/04/19 Lisinopril/Hydrochlorothiazide (Lisinopril-Hctz 20-12.5 mg Tab) 1 Each Tablet, 1 EACH PO DAILY, TAB 04/04/19 Aspirin* (Aspirin* EC) 81 Mg Tablet.dr, 81 MG PO DAILY, TAB 04/04/19 Discontinued Scripts Sulfamethoxazole/Trimethoprim (Sulfamethoxazole-Tmp Ds Tablet) 1 Each Tablet, 1 TAB PO BID for 5 Days, #10 TAB Prov:PUJA BECK MD 04/07/19 Methylprednisolone* (Medrol* DOSE PACK) 4 Mg/Dose-Pack Tab.ds.pk, 4 MG PO . DIRECTED for 6 Days, PACKET Prov:PUJA BECK MD 04/07/19 Allergies Allergies: Coded Allergies: ciprofloxacin (Unverified Allergy, Severe, 04/04/19) cephalexin (Unverified Allergy, Intermediate, REDNESS, SWELLING, ITCHING, 04/04/19) morphine (Unverified Allergy, Intermediate, RASH, 04/04/19) ondansetron (Unverified Allergy, Mild, ITCHY, 04/04/19) enoxaparin (Verified Allergy, Unknown, 04/04/19) PMhx/Soc hypertension, coronary artery disease and [place] 9 years ago status post PCI and stent, hyperlipidemia, chronic pain syndrome, sciatica, anxiety, depression, restless leg syndrome, history of UTIs History of Surgery: Yes (lumbar, cardiac stents, hysterectomy, right carotid endarterectomy,colectom) Anesthesia Reaction: No Hx Neurological Disorder: No Hx Respiratory Disorders: No (ASTHMA) Hx Cardiac Disorders: Yes (stents, HTN, ) Hx Psychiatric Problems: No Hx Miscellaneous Medical Probl: Yes (E. coli) Hx Alcohol Use: No Hx Substance Use: No Hx Tobacco Use: No Smoking Status: Never smoker FmHx Family History: No diabetes Physical Exam Vitals Vital Signs Date Temp Pulse Resp B/P (MAP) Pulse Ox O2 O2 Flow FiO2 Time Delivery Rate 04/16/19 91 20 127/87 98 Room Air 23:31 (100) 04/16/19 88 20 139/94 100 Room Air 22:03 (109) 04/16/19 93 21 108/88 97 Room Air 21:12 (95) 04/16/19 98.6 103 16 130/78 97 20:16 (95) Physical Exam GENERAL: Well-developed, well-nourished, well-hydrated, in no apparent distress, looks nontoxic in appearance HEENT: Moist mucous membranes, pink conjunctiva, no cervical spine tenderness or step-off deformities, no goiter, no jaundice or icterus, extraocular movements intact without pain. No submandibular induration, and no pharyngeal erythema NEURO: Alert and oriented 3, cranial nerves II through XII intact bilaterally, pupils equal round reactive to light, no focal deficits or facial asymmetry, sensation intact distally Strength 5/5 in upper and lower extremities bilaterally CARDIAC: Regular rate and rhythm, no murmurs rubs or gallops LUNGS: Clear bilaterally no wheezing crackles or stridor ABDOMEN: Soft nontender, no guarding, no rigidity, no rebound, no psoas sign no obturator sign. Normoactive bowel sounds SKIN: Warm and dry to touch, no abrasions, contusions, or hematomas, no lacerations, no ecchymosis, no target lesions, and without ulcers EXTREMITIES: No clubbing cyanosis or edema, calves are bilaterally symmetrical, no Homans sign, no popliteal cord sign. Distal pulses equal and bilateral PSYCH: Normal affect without agitation or irritability Result Diagram: 04/16/19214204/16/192142 Results 24 hrs Laboratory Tests Test 04/16/19 21:43 04/16/19 21:50 White Blood Count 11.9 10^3/ul Red Blood Count 4.24 10^6/ul Hemoglobin 11.4 g/dl Hematocrit 35.3 % Mean Corpuscular Volume 83.3 fl Mean Corpuscular Hemoglobin 26.9 pg Mean Corpuscular Hemoglobin Concent 32.3 g/dl Red Cell Distribution Width 15.3 % Platelet Count 351 10^3/UL Mean Platelet Volume 9.5 fl Immature Granulocytes % 0.800 % Neutrophils % 56.2 % Lymphocytes % 30.1 % Monocytes % 9.5 % Eosinophils % 3.0 % Basophils % 0.4 % Nucleated Red Blood Cells % 0.0 /100WBC Immature Granulocytes # 0.100 10^3/ul Neutrophils # 6.7 10^3/ul Lymphocytes # 3.6 10^3/ul Monocytes # 1.1 10^3/ul Eosinophils # 0.4 10^3/ul Basophils # 0.1 10^3/ul Nucleated Red Blood Cells # 0.0 10^3/ul Sodium Level 135 mmol/L Potassium Level 3.4 mmol/L Chloride Level 98 mmol/L Carbon Dioxide Level 29 mmol/L Anion Gap 8 Blood Urea Nitrogen 12 mg/dl Creatinine 0.75 mg/dl Est Glomerular Filtrat Rate mL/min > 60 mL/min Glucose Level 91 mg/dl Calcium Level 9.0 mg/dl Total Bilirubin 0.3 mg/dl Direct Bilirubin 0.00 mg/dl Indirect Bilirubin 0.3 mg/dl Aspartate Amino Transf (AST/SGOT) 34 IU/L Alanine Aminotransferase (ALT/SGPT) 42 IU/L Alkaline Phosphatase 100 IU/L Troponin I < 0.012 ng/ml Total Protein 6.5 g/dl Albumin 3.6 g/dl Globulin 2.90 g/dl Albumin/Globulin Ratio 1.24 Lipase 83 U/L Urine Color YELLOW Urine Clarity SLIGHTLY CLOUDY Urine pH 6.0 Urine Specific [place] 1.009 Urine Ketones NEGATIVE mg/dL Urine Nitrite NEGATIVE mg/dL Urine Bilirubin NEGATIVE mg/dL Urine Urobilinogen NEGATIVE mg/dL Urine Leukocyte Esterase 3+ Jannette/ul Urine Microscopic RBC 9 /HPF Urine Microscopic WBC 27 /HPF Urine Squamous Epithelial Cells FEW /HPF Urine Bacteria FEW /HPF Urine Hemoglobin NEGATIVE mg/dL Urine Glucose NEGATIVE mg/dL Urine Total Protein NEGATIVE mg/dl Current Medications Medications Dose Sig/Farrah Start Time Status Last (Trade) Ordered Route PRN Stop Time Admin Dose Reason Admin Ketorolac 15 mg ONCE STAT 04/16/19 DC 04/16/19 Tromethamine IV 21:16 04/16/19 21:44 (Toradol) 21:27 Aspirin 162 mg ONCE ONCE 04/16/19 DC 04/16/19 (Aspirin) PO 22:00 04/16/19 21:46 22:01 Oxycodone/ 1 tab ONCE ONCE 04/16/19 DC 04/16/19 Acetaminophen PO 22:00 04/16/19 21:59 (Percocet 22:01 (5/ 325)) 50 ml @ Q12 IVPB 04/17/19 Meropenem/Sod 100 mls/hr 09:00 ium Chloride Procedures/MDM IV line was established patient was placed on monitor and storage bin tender rhythm strip revealed a narrow complex tachycardia at 100 bpm with upright P and T waves. Patient was afebrile EKG performed, read by me revealed a sinus tachycardia at 103 bpm, normal axis, narrow QRS complex, diffuse T wave inversions, no concerning ST elevations One AP view of the chest performed, read by me reveals no acute infiltrates, normal mediastinum, sharp costophrenic and cardiac borders, no air under the diaphragm. Otherwise unremarkable chest x-ray. EKG #2 was performed, read by me revealed a normal sinus rhythm at 91 bpm, normal axis, narrow QRS complex, diffuse T wave inversions, no concerning ST elevations I administered Toradol 15 mg IV x1 for pain and aspirin 162 mg p.o. for cardio protective measures, later Percocet 1 tablet p.o. for continued pain. CBC and electrolytes are normal, liver function tests were normal, troponin was negative. Urine analysis was positive for infection and recent cultures revealed multiple sensitivities although she has been already treated with different antibiotics so I administered IV meropenem 1 g here in the ER. Patient's primary care physician Dr. Beck did confirm that the patient does have abnormal EKG although despite this she has some chest pain so she will be initially admitted to telemetry setting Departure Diagnosis: Primary Impression: Abnormal EKG Additional Impressions: Chest pain Chest pain type: unspecified Qualified Codes: R07.9 - Chest pain, unspecified Acute UTI Condition: SHITAL Bales MD Apr 16, 2019 21:13
[2019-04-16] MEDS ORDERED: KETOROLAC 15 MG INJ IV STA (21:16)
[2019-04-16] MEDS ORDERED: ASPIRIN 81 MG TAB PO ONE (22:00)
[2019-04-16] MEDS ORDERED: OXYCODONE/ACETAMINOPHEN (5/325) TAB PO ONE (22:00)
[2019-04-17 01:44] VITALS: BP 133/68; PULSE 83; RESP 18
[2019-04-17] MEDS ORDERED: ALBUTEROL 18 GM INHALER INH PRN (02:00)
[2019-04-17 02:25] VITALS: Ht 157.5 cm; Wt 87.4 kg
[2019-04-17] MEDS: METOCLOPRAMIDE 10 MG INJ IV PRN ×2 (02:44→10:49)
[2019-04-17] MEDS: morphine 2 MG INJ IV PRN ×3 (02:45→18:22)
[2019-04-17] MEDS ORDERED: DIPHENHYDRAMINE 50 MG INJ IV ONE (03:30)
[2019-04-17 04:00] VITALS: BP 135/63; PULSE 84; RESP 22
[2019-04-17] MEDS ORDERED: ALBUTEROL HFA 8 GM INHALER INH PRN (04:07)
[2019-04-17 07:44] VITALS: BP 131/75; PULSE 81; RESP 18
[2019-04-17] MEDS ORDERED: CLOPIDOGREL 75 MG TAB PO SCH (09:00)
[2019-04-17] MEDS ORDERED: NON-FORMULARY/PATIENT OWN MED (Salmeterol Xinaf/Fluticasone* (Advair*) 1 INH) INHALATION SCH (09:00)
--- NOTE | 2019-04-17 09:13 | CONS ---
Assessment/Plan Assessment/Plan Hospital Course (Demo Recall) chest pain: Appears to be atypical and nonanginal related to her GI symptoms. Patient also with recent negative stress test. Coronary artery disease with history of [place] and PCI 2010 Hypertension Abnormal EKG appears to be chronic is been reported in the previous years as well Asthma /COPD Ex-smoker Dyslipidemia Nausea vomiting diarrhea and possibly melena Recommendations: I will stop the Plavix given her possible melena. Continue with aspirin as long as okay from GI standpoint I will stop the Coreg given her wheezing and severe pulmonary disease Risk factor modification including statin to be continued and adjusted to the goal LDL of less than 70 GI work-up as per internal medicine. pt was ruled out for myocardial infarction with serial cardiac enzyme Pulmonary work-up and treatment as per internal medicine. Patient has reported that she has had a recent stress test on at the outside facility which was normal. Given her very atypical pain and wheezing I do not see an indication to do another stress test here today. Thank you for his referral. We will continue to follow along with you as needed. GURMEET VIVAS MD [facility] Consultation Date/Type/Reason Admit Date/Time Apr 16, 2019 at 22:43 Date of Consultation: Apr 17, 2019 Type of Consult Cardiology Reason for Consultation chest pain ./ CAD Requesting Provider: PUJA BINGHAM MD Date/Time of Note DATE: 04/17/19 TIME: 09:06 Hx of Present Illness Interventional cardiology consultation note Chief complaint: abd PAIN . NV/ D. Reason for consult: chest pain .CAD History of present illness: Thank you for this referral. History was obtained from review of the old chart. Discussion with Dr. Bingham and staff. The patient is a 63-year-old female with history of hypertension, asthma dyslipidemia, coronary artery disease status post [place] and PCI in 2010 , former smoker who presents to the emergency department at [facility] complaining of severe diffuse abdominal pain going into her chest and N/V/ d iarreha x few days . Patient has also been coughing and has been shortness of breath and wheezing. Her chest pain has resolved now. Her old record was reviewed patient has multiple admission to the hospital for chest pain work-up has been negative over the past few years since as far as 2013 that I could go back in our record. She also has had a coronary angiography done apparently a few years ago which was negative at [facility] per review of the old chart. She also reports to me that she has had a stress test in 4 weeks on outside facility which was told was normal as well. Although patient could not remember which hospital he was done Patient also has complaint of black stool PAST MEDICAL HISTORY: Includes hypertension, dyslipidemia, [place], coronary artery disease, status post PCI 9 years ago. Asthma PAST SURGICAL HISTORY: Includes: 1. Total abdominal hysterectomy complicated by colonic trauma. 2. Fusion surgery in the L-spine. ALLERGIES: 1. CIPRO. 2. ZOFRAN. 3. MORPHINE. MEDICATIONS: Reviewed as per medical reconciliation reviewed personally reviewed SOCIAL HISTORY: She stopped smoking 10 years ago, but did not smoke a lot. Alcohol: Socially. IV drug abuse: Denies. The patient is single. She has 6 kids. The patient is currently disabled due to her heart condition and back pain. FAMILY HISTORY: Mother from [place]. She has 3 brothers who also from heart disease and had heart surgery. Father from colon cancer at age 57. Review of system: Patient denies all others except for above-mentioned Past Medical History Home Meds Active Scripts Lorazepam* (Lorazepam*) 1 Mg Tablet, 1 MG PO BID PRN for ANXIETY, #20 TAB Prov:PUJA BINGHAM MD 04/07/19 Hydrocodone/Acetaminophen ([place] 10-325 Tablet) 1 Each Tablet, 1 EACH PO BID PRN for PAIN LEVEL 6-10, #30 TAB Prov:PUJA BINGHAM MD 04/07/19 Reported Medications Zolpidem Tartrate* (Ambien*) 10 Mg Tablet, 10 MG PO QHS PRN for INSOMNIA, TAB 04/04/19 Salmeterol Xinaf/Fluticasone* (Advair*) 250-50 Diskus Inhaler, 1 INH INHALATION BID, #1 INHALER 04/04/19 Carisoprodol* (Carisoprodol*) 350 Mg Tablet, 350 MG PO Q8 PRN for MUSCLE SPASMS, TAB 04/04/19 Potassium Chloride* (Potassium Chloride*) 8 Meq Capsule.er, 8 MEQ PO DAILY, CAP 04/04/19 Duloxetine Hcl* (Duloxetine Hcl*) 60 Mg Capsule.dr, 60 MG PO DAILY, #30 CAP 04/04/19 Clopidogrel Bisulfate* (Clopidogrel Bisulfate*) 75 Mg Tablet, 75 MG PO DAILY, #30 TAB 04/04/19 Carvedilol* (Carvedilol*) 3.125 Mg Tablet, 3.125 MG PO BID, #60 TAB 04/04/19 Albuterol Sulfate* (Ventolin HFA*) 18 Gm Hfa.aer.ad, 2 PUFF INHALATION Q4H, #1 INHALER 04/04/19 Simvastatin* (Zocor*) 10 Mg Tablet, 10 MG PO QHS, #30 TAB 04/04/19 Lisinopril/Hydrochlorothiazide (Lisinopril-Hctz 20-12.5 mg Tab) 1 Each Tablet, 1 EACH PO DAILY, TAB 04/04/19 Aspirin* (Aspirin* EC) 81 Mg Tablet.dr, 81 MG PO DAILY, TAB 04/04/19 Discontinued Scripts Sulfamethoxazole/Trimethoprim (Sulfamethoxazole-Tmp Ds Tablet) 1 Each Tablet, 1 TAB PO BID for 5 Days, #10 TAB Prov:PUJA BINGHAM MD 04/07/19 Methylprednisolone* (Medrol* DOSE PACK) 4 Mg/Dose-Pack Tab.ds.pk, 4 MG PO . DIRECTED for 6 Days, PACKET Prov:PUJA BINGHAM MD 04/07/19 Medications Current Medications Meropenem/Sodium Chloride 50 ml @ 100 mls/hr Q12 IVPB ; Start 04/17/19 at 09:00 Aspirin (Halfprin) 81 mg DAILY PO ; Start 04/17/19 at 09:00 Carisoprodol (Soma) 350 mg Q8 PRN PO MUSCLE SPASMS; Start 04/17/19 at 02:00 Carvedilol (Coreg) 3.125 mg BID PO ; Start 04/17/19 at 09:00 Clopidogrel Bisulfate (plaVIX) 75 mg DAILY PO ; Start 04/17/19 at 09:00 Duloxetine HCl (Cymbalta) 60 mg DAILY PO ; Start 04/17/19 at 09:00 Acetaminophen/ Hydrocodone Bitart ([place] (10/325)) 1 tab Q8 PRN PO PAIN LEVEL 6-10; Start 04/17/19 at 02:00 Lorazepam (Ativan) 1 mg BID PRN PO ANXIETY; Start 04/17/19 at 02:00 Potassium Chloride (Micro-K) 8 meq DAILY PO ; Start 04/17/19 at 09:00 Zolpidem Tartrate (Ambien) 10 mg QHS PRN PO INSOMNIA; Start 04/17/19 at 02:00 Morphine Sulfate (morphine) 2 mg Q6H PRN IV SEVERE PAIN LEVEL 7-10 Last administered on 04/17/19at 02:45; Admin Dose 2 MG; Start 04/17/19 at 02:00 Metoclopramide HCl (Reglan) 10 mg Q6H PRN IV NAUSEA Last administered on 04/17/19at 02:44; Admin Dose 10 MG; Start 04/17/19 at 02:00 Heparin Sodium (Porcine) (Heparin (5000 Units/1ml)) 5,000 unit BID SC ; Start 04/17/19 at 09:00 Atorvastatin Calcium (Lipitor) 10 mg HS PO ; Start 04/17/19 at 21:00 Lisinopril (Zestril) 20 mg DAILY PO ; Start 04/17/19 at 09:00 Hydrochlorothiazide (Hydrochlorothiazide) 12.5 mg DAILY PO ; Start 04/17/19 at 09:00 Fluticasone/ Vilanterol (Breo Ellipta 100-25 Mcg Inh) 1 inh DAILY INH ; Start 04/17/19 at 09:00 Albuterol (Ventolin Hfa) 2 puff Q4H RESP THERAPY PRN INH SHORTNESS OF BREATH; Start 04/17/19 at 04:07 Allergies: Coded Allergies: ciprofloxacin (Unverified Allergy, Severe, 04/04/19) cephalexin (Unverified Allergy, Intermediate, REDNESS, SWELLING, ITCHING, 04/04/19) ondansetron (Unverified Allergy, Mild, ITCHY, 04/04/19) Social History Smoking Status: Never smoker Exam/Review of Systems Vital Signs Vitals Vital Signs Date Temp Pulse Resp B/P (MAP) Pulse Ox O2 O2 Flow FiO2 Time Delivery Rate 04/17/19 97.4 81 18 131/75 98 Room Air 07:44 (93) Intake and Output 04/16/19 04/16/19 04/17/19 1515:00 23:00 07:00 IntakeIntake Total 460 ml BalanceBalance 460 ml Exam Exam General: no acute distress HEENT: NC/AT. pupils are equal. round. NECK: NO JVD. no stridor. CV: RRR. systolic murmur; no gallop or rubs. PULM: + Diffuse wheezing GI: SOFT, NT, ND, no rebound or guarding Extremity: trace B/L LE edema. no clubbing. neuro: awake and alert, OX3. Psych: calm and pleasant rectal: deferred EKG done April 16, 2019 was personally reviewed showed normal sinus rhythm with PVCs. Nonspecific ST-T wave abnormality. Review of the old chart showed patient has had similar ST depressions in the past as well Labs Result Diagram: 04/17/19 0559 04/17/19 0559 Results 24hrs Laboratory Tests Test 04/16/19 21:43 04/16/19 21:50 04/17/19 05:59 White Blood Count 11.9 #H 9.3 # Red Blood Count 4.24 4.13 L Hemoglobin 11.4 L 11.2 L Hematocrit 35.3 L 34.3 L Mean Corpuscular Volume 83.3 83.1 Mean Corpuscular Hemoglobin 26.9 L 27.1 L Mean Corpuscular 32.3 32.7 Hemoglobin Concent Red Cell Distribution Width 15.3 H 15.3 H Platelet Count 351 # 291 Mean Platelet Volume 9.5 9.6 Immature Granulocytes % 0.800 H 0.600 H Neutrophils % 56.2 54.2 Lymphocytes % 30.1 31.9 Monocytes % 9.5 9.5 Eosinophils % 3.0 3.3 Basophils % 0.4 0.5 Nucleated Red Blood Cells % 0.0 0.0 Immature Granulocytes # 0.100 H 0.060 H Neutrophils # 6.7 5.0 Lymphocytes # 3.6 H 3.0 H Monocytes # 1.1 H 0.9 Eosinophils # 0.4 0.3 Basophils # 0.1 0.1 Nucleated Red Blood Cells # 0.0 0.0 Sodium Level 135 139 Potassium Level 3.4 L 3.6 Chloride Level 98 105 Carbon Dioxide Level 29 26 Anion Gap 8 8 Blood Urea Nitrogen 12 13 Creatinine 0.75 0.68 Est Glomerular Filtrat > 60 > 60 Rate mL/min Glucose Level 91 101 Calcium Level 9.0 8.9 Total Bilirubin 0.3 0.4 Direct Bilirubin 0.00 0.00 Indirect Bilirubin 0.3 0.4 Aspartate Amino 34 33 Transf (AST/SGOT) Alanine 42 46 Aminotransferase (ALT/SGPT) Alkaline Phosphatase 100 78 Troponin I < 0.012 < 0.012 Total Protein 6.5 6.0 L Albumin 3.6 3.1 L Globulin 2.90 2.90 Albumin/Globulin Ratio 1.24 1.06 Lipase 83 Urine Color YELLOW Urine Clarity SLIGHTLY CLOUDY A Urine pH 6.0 Urine Specific [place] 1.009 Urine Ketones NEGATIVE Urine Nitrite NEGATIVE Urine Bilirubin NEGATIVE Urine Urobilinogen NEGATIVE Urine Leukocyte Esterase 3+ H Urine Microscopic RBC 9 H Urine Microscopic WBC 27 H Urine Squamous Epithelial Cells FEW Urine Bacteria FEW A Urine Hemoglobin NEGATIVE Urine Glucose NEGATIVE Urine Total Protein NEGATIVE Thyroid Stimulating 4.380 Hormone (TSH) Medications Medications Current Medications Meropenem/Sodium Chloride 50 ml @ 100 mls/hr Q12 IVPB ; Start 04/17/19 at 09:00 Aspirin (Halfprin) 81 mg DAILY PO ; Start 04/17/19 at 09:00 Carisoprodol (Soma) 350 mg Q8 PRN PO MUSCLE SPASMS; Start 04/17/19 at 02:00 Carvedilol (Coreg) 3.125 mg BID PO ; Start 04/17/19 at 09:00 Clopidogrel Bisulfate (plaVIX) 75 mg DAILY PO ; Start 04/17/19 at 09:00 Duloxetine HCl (Cymbalta) 60 mg DAILY PO ; Start 04/17/19 at 09:00 Acetaminophen/ Hydrocodone Bitart ([place] (10/325)) 1 tab Q8 PRN PO PAIN LEVEL 6-10; Start 04/17/19 at 02:00 Lorazepam (Ativan) 1 mg BID PRN PO ANXIETY; Start 04/17/19 at 02:00 Potassium Chloride (Micro-K) 8 meq DAILY PO ; Start 04/17/19 at 09:00 Zolpidem Tartrate (Ambien) 10 mg QHS PRN PO INSOMNIA; Start 04/17/19 at 02:00 Morphine Sulfate (morphine) 2 mg Q6H PRN IV SEVERE PAIN LEVEL 7-10 Last administered on 04/17/19at 02:45; Admin Dose 2 MG; Start 04/17/19 at 02:00 Metoclopramide HCl (Reglan) 10 mg Q6H PRN IV NAUSEA Last administered on 04/17/19at 02:44; Admin Dose 10 MG; Start 04/17/19 at 02:00 Heparin Sodium (Porcine) (Heparin (5000 Units/1ml)) 5,000 unit BID SC ; Start 04/17/19 at 09:00 Atorvastatin Calcium (Lipitor) 10 mg HS PO ; Start 04/17/19 at 21:00 Lisinopril (Zestril) 20 mg DAILY PO ; Start 04/17/19 at 09:00 Hydrochlorothiazide (Hydrochlorothiazide) 12.5 mg DAILY PO ; Start 04/17/19 at 09:00 Fluticasone/ Vilanterol (Breo Ellipta 100-25 Mcg Inh) 1 inh DAILY INH ; Start 04/17/19 at 09:00 Albuterol (Ventolin Hfa) 2 puff Q4H RESP THERAPY PRN INH SHORTNESS OF BREATH; Start 04/17/19 at 04:07 GURMEET VIVAS MD Apr 17, 2019 09:13
[2019-04-17] MEDS: DULOXETINE 30 MG CAP DR PO SCH (09:25)
[2019-04-17] MEDS: HYDROCHLOROTHIAZIDE 12.5 MG CAP PO SCH (09:27)
[2019-04-17] MEDS: POTASSIUM CHLORIDE (SR) 8 MEQ CAP PO SCH (09:27)
[2019-04-17] MEDS: LISINOPRIL 20 MG TAB PO SCH (09:28)
[2019-04-17] MEDS: ASPIRIN (EC) 81 MG TAB PO SCH (09:28)
[2019-04-17] MEDS: HEPARIN 5,000 UNIT/1 ML VIAL SC SCH ×2 (09:35→20:19)
[2019-04-17] MEDS: FLUTICASONE/VILANTEROL 100-25 INH SCH (09:36)
[2019-04-17] MEDS: MEROPENEM 1 GM/50ML(PMX) 50 ML IVPB SCH ×2 (09:36→20:26)
[2019-04-17 11:49] VITALS: BP 122/68; PULSE 83; RESP 18
[2019-04-17] MEDS: HYDROCODONE/APAP (10/325) TAB PO PRN ×2 (11:55→20:25)
[2019-04-17 15:20] VITALS: BP 115/76; PULSE 96; RESP 18
--- NOTE | 2019-04-17 15:42 | RADRPT ---
Vent Rate: 86 bpm RR Interval: 700 msec [place] Interval: 171 msec QRS Duration: 88 msec QT Interval: 410 msec QTC Interval: 490 msec P-R-T [place]: 72 - 77 - 246 degrees Sinus rhythm...normal P axis, V-rate 50- 99 Repol abnrm, severe global ischemia (LM/MVD)...Teto aVR, STd & Tneg, ant/lat/inf Electronically Signed By: Noah Smith
[2019-04-17] MEDS: CARISOPRODOL 350 MG TAB PO PRN (17:06)
[2019-04-17] MEDS: PANTOPRAZOLE (EC) 40 MG TAB PO SCH (17:06)
--- NOTE | 2019-04-17 19:12 | HP ---
DATE OF ADMISSION: 04/16/2019 REASON FOR ADMISSION: Abdominal pain, urinary tract infection, black stools, rule out GI bleed. HISTORY OF PRESENT ILLNESS: The patient is a 63-year-old female with history of hypertensio n and dyslipidemia, [place] 9 years ago, status post PCI with 1 stent placed, former smoker, who has an ab normal EKG ischemic-like but the patient underwent recent cardiac workup which was unremarkable. She was admitted under my care on 04/12/2019 with chest pain and troponins were negative. As per report , the patient had recently negative cardiac workup. The patient also was diagnosed with UTI on that admission and was discharged on oral Bactrim. Despite the above care, she presented again to the ER on 04/14/2019 then to her PCP and then back to the ER currently complaining of abdominal pain, nausea , vomiting, chest pain and black stools. The patient underwent workup. White count was elevated at 11.9. Troponin was negative, but because of the above symptoms and complaints, she was admitted for further care. Upon admission, I requested cardiology consultation and GI consultation for further re commendations. Currently, she is already feeling better. Her abdominal pain is less severe and able to tolerate diet since admission. PAST MEDICAL HISTORY: Includes hypertension, dyslipidemia, [place], coronary artery disease, status post PCI 9 years ago. PAST SURGICAL HISTORY: Total abdominal hysterectomy complicated by colonic trauma, fusion surgery in the L-spine. ALLERGIES: 1. CIPRO. 2. ZOFRAN. 3. MORPHINE. 4. QUESTIONABLE ALLERGY TO CEPHALEXIN. SOCIAL HISTORY: She stopped smoking 10 years ago. Alcohol socially. IV drug abuse: None. She is single. She has 6 kids. She is currently disabled due to heart condition and back pain. FAMILY HISTORY: Mother from [place]. She has 3 brothers who also from heart disease and they h ad heart surgery. Father from colon cancer at age 57. The patient had never had a colonoscopy. REVIEW OF SYSTEMS: She says previous stool was negative for blood, but again in the past 2 days, the patient does report black stools. HOME MEDICATIONS: Reviewed. They include the followin. Albuterol 2 puffs q.4 p.r.n. 2. Soma 350 q.8 p.r.n. 3. Plavix 75 mg daily. 4. Coreg 3.125 b.i.d. 5. Lisinopril and hydrochlorothiazide 20/12.5 daily. 6. Zocor 10 mg at bedtime. 7. Aspirin 81 mg daily. 8. Duloxetine 60 mg daily. 9. [place] 10/325 b.i.d. p.r.n. 10. Lorazepam 1 mg b.i.d. p.r.n. 11. Ambien 10 mg at bedtime p.r.n. 12. Potassium chloride 8 mEq daily. 13. Advair 250/50 one puff b.i.d. PHYSICAL EXAMINATION: VITAL SIGNS: Temperature 98.1, pulse 76, respiration 18, blood pressure 115/76, saturation 98%. GENERAL: In no acute distress. HEENT: Normocephalic, atraumatic. Slightly pale. NECK: No JVD. CARDIOVASCULAR: S1, S2. Regular rate. LUNGS: Clear. ABDOMEN: Distended. Mild discomfort at mid abdomen and mid epigastric area. EXTREMITIES: No clubbing, cyanosis or edema. LABORATORY DATA: White count improved to 9.3, hemoglobin 11.2, hematocrit 34, platelets 291, neutrop hils 54%, lymphocytes 32%. Chemistry: Sodium 139, potassium 3.6, chloride 105, bicarbonate 26, BUN is 13, creatinine 0.66 and glucose of 101. AST 33, ALT 46, alkaline phosphatase 78. Troponin x3 are already negative. Lipase 83, normal. TSH 4.3. Urine analysis was positive leukocyte esterase, RBC 9, WBC 27. Urine culture negative. IMAGING TESTS: Chest x-ray shows no evidence of active cardiopulmonary disease. She did undergo a C AT scan of abdomen on 04/14/2019 which showed no bowel obstruction or ileus, fat containing periumbil ical and infraumbilical ventral hernia. No evidence of diverticulitis. No evidence of appendicitis. No obstructive uropathy. Fatty liver. Status post hysterectomy. Scoliosis with multilevel degene rative changes of the lumbar spine, posterior metal fusion plate at the spinous process of L3 to L4, L4 to L5 and bibasilar atelectasis is noted. MICROBIOLOGY: Urine culture done on 04/04/2019 does show E. coli growing 100,000 pansensitive, only resistant to ampicillin. ASSESSMENT AND PLAN: This is a 63-year-old female with history of coronary artery disease, status post PCI, hypertension, dyslipidemia, presented with abdominal pain, nausea, vomiting, was fou nd to have urinary tract infection and questionable black stools. 1. Urinary tract infection. The patient was placed on imipenem. THE PATIENT HAS ALLERGIES TO CIPRO FLOXACIN AND QUINOLONE. UNCLEAR IF SHE IS ALLERGIC TO CEPHALEXIN. In the meantime, continue above. White count has normalized now. May repeat urine analysis soon. This is a recurrent infection or p atient may not be taking her medications. 2. Chest pain. Serial troponins are negative. Plavix was placed on hold due to possible gastrointe stinal bleed. Continue medical management per cardiology. 3. Rule out gastrointestinal bleed. Occult blood is pending. The patient will be placed on Protoni x and GI was consulted. Avoid NSAIDs. 4. Chronic back. P.r.n. pain medication, but without NSAIDs. 5. Depression. Continue Cymbalta. 6. Diet as tolerated. 7. Clinically already doing better. We will follow. Dictated By: PUJA VALDIVIA/MAGGIE Conf#: [id number] DID#: [id number]
[2019-04-17 20:22] VITALS: BP 121/64; PULSE 84; RESP 19
[2019-04-17] MEDS: ATORVASTATIN 10 MG TAB PO SCH (20:25)
[2019-04-17] MEDS: ZOLPIDEM 5 MG TAB PO PRN (20:27)
[2019-04-17] MEDS ORDERED: NON-FORMULARY/PATIENT OWN MED (Simvastatin* (Zocor*) 10 MG) PO SCH (21:00)
--- NOTE | 2019-04-17 21:06 | CONS ---
DATE OF ADMISSION: 04/16/2019 DATE OF CONSULTATION: TYPE OF CONSULTATION: Gastroenterology. From Catrachita Sanabria MD, to Pawel Beck MD. HISTORY OF PRESENT ILLNESS: The patient is a 63-year-old female who comes to the emergency room comp laining of burning sensation during urination and also hesitancy. GI consult was called in for abdom inal pain and passing black colored stool in the ER. No chest pain, no shortness of breath, no or SPACER TYPE BAR AND SEGMENT problem, no fever with chills. The patient did not respond to Bactrim as an outpatient for UTI. REVIEW OF SYSTEMS: Negative. HOME MEDICATIONS: All reviewed. The patient was on: 1. [place]. 2. Carisoprodol. 3. Plavix. 4. Carvedilol. 5. Ventolin. 6. Lisinopril. 7. Aspirin. 8. Medrol Dosepak. ALLERGIES: 1. CIPRO. 2. CEPHALEXIN. 3. MORPHINE. 4. ENOXAPARIN. PAST MEDICAL HISTORY: Status post PCI and stent placement which was 9 years ago, chronic pain syndro me, sciatica, depression, anxiety, restless leg syndrome, hysterectomy, right carotid endarterectomy, hypertension, bronchial asthma. PHYSICAL EXAMINATION: VITALS: Stable. GENERAL: Alert, awake, not in distress. CARDIOVASCULAR: No murmur, gallop or click. LUNGS: Clear. ABDOMEN: Soft, tenderness in the epigastric area. Bowel sounds are good. No mass felt per abdomen. EXTREMITIES: No edema. CENTRAL NERVOUS SYSTEM: Grossly within normal limit. IMPRESSION: 1. Epigastric pain, atypical chest pain. 2. Passing black colored stool. 3. Coronary artery disease with history of myocardial infarction and PCI in 2010. 4. Hypertension. 5. Chronic obstructive pulmonary disease. 6. Dyslipidemia. 7. Nausea and vomiting. 8. Chronic pain syndrome. PLAN: Start the patient on PPI, pain management and definitely will need endoscopy. In the interim, we will monitor H and H and continue antibiotic for UTI. Dictated By: CATRACHITA FORD/MAGGIE Conf#: [id number] DID#: [id number] CC: PAWEL BECK MD;*EndCC*
[2019-04-17] MEDS: LORAZEPAM 1 MG TAB PO PRN (21:48)
[2019-04-18] VITALS (7 sets, daily range): BP systolic 106–131; BP diastolic 59–75; PULSE 80–94; RESP 18–20
[2019-04-18] MEDS: morphine 2 MG INJ IV PRN (02:51)
[2019-04-18] MEDS: CARISOPRODOL 350 MG TAB PO PRN ×2 (03:06→20:34)
[2019-04-18] MEDS ORDERED: DIPHENHYDRAMINE 25 MG CAP PO PRN (03:30)
[2019-04-18] MEDS ORDERED: DIPHENHYDRAMINE 50 MG INJ IV ONE (03:30)
[2019-04-18] MEDS: PANTOPRAZOLE (EC) 40 MG TAB PO SCH ×2 (06:00→17:39)
[2019-04-18] MEDS: MEROPENEM 1 GM/50ML(PMX) 50 ML IVPB SCH ×2 (09:03→20:23)
[2019-04-18] MEDS: LISINOPRIL 20 MG TAB PO SCH (09:04)
[2019-04-18] MEDS: ASPIRIN (EC) 81 MG TAB PO SCH (09:04)
[2019-04-18] MEDS: HYDROCHLOROTHIAZIDE 12.5 MG CAP PO SCH (09:04)
[2019-04-18] MEDS: DULOXETINE 30 MG CAP DR PO SCH (09:05)
[2019-04-18] MEDS: FLUTICASONE/VILANTEROL 100-25 INH SCH (09:05)
[2019-04-18] MEDS: POTASSIUM CHLORIDE (SR) 8 MEQ CAP PO SCH (09:10)
[2019-04-18] MEDS: HYDROCODONE/APAP (10/325) TAB PO PRN (09:11)
[2019-04-18] MEDS: KETOROLAC 15 MG INJ IV PRN ×2 (09:12→21:00)
[2019-04-18] MEDS: HEPARIN 5,000 UNIT/1 ML VIAL SC SCH ×2 (09:22→20:28)
[2019-04-18] MEDS: METOCLOPRAMIDE 10 MG INJ IV PRN (10:25)
[2019-04-18] MEDS: LORAZEPAM 1 MG TAB PO PRN (10:47)
--- NOTE | 2019-04-18 12:51 | PN ---
DATE: 04/18/2019 SUBJECTIVE: The patient seen. The patient has been complaining of abdominal pain. She already had a CAT scan of the abdomen just on the ER visit on 04/14/2019 which did not show any significant abnor malities besides the spinal disk disease, scoliosis and multilevel degenerative changes of the lumbar spine. The patient says she has an ALLERGY TO MORPHINE, so we gave her Benadryl and I switched her to Toradol and made the [place] more frequent. Otherwise, the patient does have some opioid dependency . I do not want to overwhelm her with opioids despite her request. Case discussed with nursing gabi pinzon but definitely will try to keep her comfortable. PHYSICAL EXAMINATION: VITAL SIGNS: Temperature is 98.4, pulse 93, respirations 18, blood pressure 118/74, saturation 98%. GENERAL: No acute distress. HEENT: Atraumatic. CARDIOVASCULAR: S1, S2, regular rate. LUNGS: Clear. ABDOMEN: Soft, positive midepigastric area pain. EXTREMITIES: No clubbing, cyanosis, edema. LABORATORY DATA: White count 9.4, hemoglobin 11.2, hematocrit 36, platelet count 271 . Clay Transporter ry: Sodium is 139, potassium 3.6, chloride 104, bicarb 26, BUN 13, creatinine 0.66, glucose of 101. Troponin x3 negative. MRSA screening and urine culture all negative. MEDICATIONS: 1. [place] 10/25 q.6 p.r.n. 2. Toradol 15 mg q.6 p.r.n. 3. Benadryl 25 q.6 p.r.n. 4. Lipitor 10 mg at bedtime. 5. Protonix 40 mg daily. 6. Merrem 500 IV q.12. 7. Aspirin 81 mg daily. 8. Cymbalta 60 mg daily. 9. KCl 8 mEq daily. 10. Heparin 5000 b.i.d. 11. Lisinopril 20 mg daily. 12. HCTZ 12.5 daily. 13. Breo Ellipta 1 puff daily. 14. Ventolin p.r.n. 15. Soma 350 q.8 p.r.n. 16. Ativan 1 mg b.i.d. p.r.n. 17. Ambien 10 mg at bedtime p.r.n. 18. Reglan 10 mg IV q.6 p.r.n. ASSESSMENT AND PLAN: This is a 63-year-old female with history of coronary artery disease s tatus post PCI, hypertension, dyslipidemia, presented with abdominal pain, nausea, vomiting, was foun d to have urinary tract infection and questionable black stools. 1. Urinary tract infection. Continue imipenem. This patient has OTHER DRUG ALLERGIES. She states that she is NOT ALLERGIC TO CEPHALEXIN. In the meantime, continue above treatment. May consider rep eating urine studies soon. 2. Abdominal pain. GI is on board. The patient likely to undergo EGD. Continue Protonix b.i.d. do sing. The patient may have gastrointestinal bleed. We will follow. 3. Chronic back pain. Hold NSAIDs due to possible gastrointestinal bleed. Continue [place] for now. 4. Depression, on Cymbalta. 5. Diet as tolerated. 6. Out of bed activity as tolerated. 7. Anxiety. Continue Ativan, duloxetine. 8. Coronary artery disease with a recent admission for chest pain. Troponins are negative. Recent cardiac workup was negative. Dr. Ibrahim, the clay stain mixer is following closely. DISPOSITION: After GI workup. We will follow. Dictated By: PUJA VALDIVIA/MAGGIE Conf#: [id number] DID#: [id number]
--- NOTE | 2019-04-18 14:44 | CONS ---
Assessment/Plan Assessment/Plan Assessment/Plan (Daily) IMPRESSION: 1. Epigastric pain, atypical chest pain. 2. Passing black colored stool. 3. Coronary artery disease with history of myocardial infarction and PCI in 2010. 4. Hypertension. 5. Chronic obstructive pulmonary disease. 6. Dyslipidemia. 7. Nausea and vomiting. 8. Chronic pain syndrome. Plan Continue PPI Monitor H&H EGD tomorrow Consultation Date/Type/Reason Admit Date/Time Apr 16, 2019 at 22:43 Initial Consult Date 04/17/19 Requesting Provider: PUJA BINGHAM MD Date/Time of Note DATE: 04/18/19 TIME: 14:44 24 HR Interval Summary Free Text/Dictation 10 complains of epigastric pain and nausea Exam/Review of Systems Exam Vitals Vital Signs Date Temp Pulse Resp B/P (MAP) Pulse Ox O2 O2 Flow FiO2 Time Delivery Rate 04/18/19 97.6 94 18 124/75 97 11:10 (91) 04/18/19 Room Air 04:00 Intake and Output 04/17/19 04/17/19 04/18/19 1515:00 23:00 07:00 IntakeIntake Total 450 ml 1050 ml BalanceBalance 450 ml 1050 ml Constitutional: alert, oriented, well developed Psych: no complaints, nl mood/affect Head: normocephalic, atraumatic Eyes: nl conjunctiva, EOMI, nl lids, nl sclera, PERRL ENMT: nl external ears & nose, nl lips & teeth, nl nasal mucosa & septum Neck: supple, non-tender Respiratory: clear to auscultation, normal air movement Cardiovascular: regular rate and rhythm, nl pulses Gastrointestinal: soft, nl liver, spleen, non-tender Musculoskeletal: nl extremities to inspection, nl gait and stance Extremities: normal pulses Neurological: [employer]ANT OPERATOR II-XII intact, nl mental status, nl speech, nl strength Skin: nl turgor; No rash or lesions Lymph: nl lymph nodes Results Result Diagram: 04/18/19 1006 04/18/19 1006 Results 24hrs Laboratory Tests Test 04/17/19 19:02 04/18/19 10:06 Troponin I < 0.012 White Blood Count 9.4 Red Blood Count 4.22 Hemoglobin 11.2 L Hematocrit 35.6 L Mean Corpuscular Volume 84.4 Mean Corpuscular Hemoglobin 26.5 L Mean Corpuscular Hemoglobin Concent 31.5 L Red Cell Distribution Width 15.7 H Platelet Count 271 Mean Platelet Volume 10.0 Immature Granulocytes % 0.600 H Neutrophils % 65.0 Lymphocytes % 22.8 Monocytes % 7.8 Eosinophils % 3.2 Basophils % 0.6 Nucleated Red Blood Cells % 0.0 Immature Granulocytes # 0.060 H Neutrophils # 6.1 Lymphocytes # 2.1 Monocytes # 0.7 Eosinophils # 0.3 Basophils # 0.1 Nucleated Red Blood Cells # 0.0 Sodium Level 139 Potassium Level 3.7 Chloride Level 105 Carbon Dioxide Level 28 Anion Gap 6 Blood Urea Nitrogen 11 Creatinine 0.74 Est Glomerular Filtrat Rate mL/min > 60 Glucose Level 97 Calcium Level 8.5 Phosphorus Level 3.4 Magnesium Level 1.9 Medications Medication Current Medications Meropenem/Sodium Chloride 50 ml @ 100 mls/hr Q12 IVPB Last administered on 04/18/19 09:03; Admin Dose 100 MLS/HR; Start 04/17/19 at 09:00 Aspirin (Halfprin) 81 mg DAILY PO Last administered on 04/18/19 09:04; Admin Dose 81 MG; Start 04/17/19 at 09:00 Carisoprodol (Soma) 350 mg Q8 PRN PO MUSCLE SPASMS Last administered on 04/18/19 03:06; Admin Dose 350 MG; Start 04/17/19 at 02:00 Duloxetine HCl (Cymbalta) 60 mg DAILY PO Last administered on 04/18/19 09:05; Admin Dose 60 MG; Start 04/17/19 at 09:00 Lorazepam (Ativan) 1 mg BID PRN PO ANXIETY Last administered on 04/18/19 10:47; Admin Dose 1 MG; Start 04/17/19 at 02:00 Potassium Chloride (Micro-K) 8 meq DAILY PO Last administered on 04/18/19 09:10; Admin Dose 8 MEQ; Start 04/17/19 at 09:00 Zolpidem Tartrate (Ambien) 10 mg QHS PRN PO INSOMNIA Last administered on 04/17/19 20:27; Admin Dose 10 MG; Start 04/17/19 at 02:00 Metoclopramide HCl (Reglan) 10 mg Q6H PRN IV NAUSEA Last administered on 7/4/19at 10:25; Admin Dose 10 MG; Start 04/17/19 at 02:00 Heparin Sodium (Porcine) (Heparin (5000 Units/1ml)) 5,000 unit BID SC Last administered on 04/18/19 09:22; Admin Dose 5,000 UNIT; Start 04/17/19 at 09:00 Atorvastatin Calcium (Lipitor) 10 mg HS PO Last administered on 04/17/19at 20:25; Admin Dose 10 MG; Start 04/17/19 at 21:00 Lisinopril (Zestril) 20 mg DAILY PO Last administered on 04/18/19at 09:04; Admin Dose 20 MG; Start 04/17/19 at 09:00 Hydrochlorothiazide (Hydrochlorothiazide) 12.5 mg DAILY PO Last administered on 04/18/19 09:04; Admin Dose 12.5 MG; Start 04/17/19 at 09:00 Fluticasone/ Vilanterol (Breo Ellipta 100-25 Mcg Inh) 1 inh DAILY INH Last administered on 04/18/19 09:05; Admin Dose 1 INH; Start 04/17/19 at 09:00 Albuterol (Ventolin Hfa) 2 puff Q4H RESP THERAPY PRN INH SHORTNESS OF BREATH; Start 04/17/19 at 04:07 Pantoprazole (Protonix Tab) 40 mg BID@06,18 PO Last administered on 04/17/19at 17:06; Admin Dose 40 MG; Start 04/17/19 at 18:00 Ketorolac Tromethamine (Toradol) 15 mg Q6H PRN IV PAIN Last administered on 04/18/19at 09:12; Admin Dose 15 MG; Start 04/18/19 at 03:30; Stop 04/21/19 at 03:29 Diphenhydramine HCl (Benadryl) 25 mg Q6H PRN PO ITCHING; Start 04/18/19 at 03:30 Acetaminophen/ Hydrocodone Bitart ([place] (10/325)) 1 tab Q6 PRN PO PAIN LEVEL 6-10; Start 04/18/19 at 11:00 CATRACHITA RIVERA MD Apr 18, 2019 14:44
[2019-04-18] MEDS: ATORVASTATIN 10 MG TAB PO SCH (20:23)
[2019-04-18] MEDS: ZOLPIDEM 5 MG TAB PO PRN (20:34)
[2019-04-19] VITALS (17 sets, daily range): BP systolic 121–165; BP diastolic 61–99; PULSE 85–151; RESP 16–20
[2019-04-19] MEDS: PANTOPRAZOLE (EC) 40 MG TAB PO SCH ×2 (05:30→17:27)
[2019-04-19] MEDS: HYDROCODONE/APAP (10/325) TAB PO PRN ×3 (06:30→20:29)
[2019-04-19] MEDS: HYDROCHLOROTHIAZIDE 12.5 MG CAP PO SCH (09:00)
[2019-04-19] MEDS: POTASSIUM CHLORIDE (SR) 8 MEQ CAP PO SCH (09:00)
[2019-04-19] MEDS: LISINOPRIL 20 MG TAB PO SCH (09:00)
[2019-04-19] MEDS: ASPIRIN (EC) 81 MG TAB PO SCH (09:00)
[2019-04-19] MEDS: DULOXETINE 30 MG CAP DR PO SCH (09:00)
[2019-04-19] MEDS: HEPARIN 5,000 UNIT/1 ML VIAL SC SCH ×2 (09:00→20:30)
[2019-04-19] MEDS: MEROPENEM 1 GM/50ML(PMX) 50 ML IVPB SCH ×2 (09:01→20:29)
[2019-04-19] MEDS: FLUTICASONE/VILANTEROL 100-25 INH SCH (09:02)
[2019-04-19] MEDS: METOCLOPRAMIDE 10 MG INJ IV PRN (09:03)
[2019-04-19] MEDS: KETOROLAC 15 MG INJ IV PRN (09:05)
[2019-04-19] MEDS: HYDROmorphONE 0.5 MG/0.5 ML SYG IV PRN ×3 (10:17→21:25)
--- NOTE | 2019-04-19 11:00 | CONS ---
Consult Date/Type/Reason Admit Date/Time Apr 16, 2019 at 22:43 Initial Consult Date 04/17/19 Requesting Provider: PUJA BINGHAM MD Date/Time of Note DATE: 04/19/19 TIME: 10:58 Subjective cardiology follow up note S Discussed with the staff and telemetry was reviewed. Patient has remained sinus rhythm. Discussed with family at the bedside Patient with no chest pain or pressure but is still complains of blood in the stool No palpitation now breathing is better less wheezing Objective: General: no acute distress HEENT: NC/AT. pupils are equal. round. NECK: NO JVD. no stridor. CV: RRR. systolic murmur; no gallop or rubs. PULM: no wheezing or rhonchi. GI: SOFT, NT, ND, no rebound or guarding Extremity: trace B/L LE edema. no clubbing. neuro: awake and alert, OX3. Psych: calm and pleasant rectal: deferred Objective Vitals Vital Signs Date Temp Pulse Resp B/P (MAP) Pulse Ox O2 O2 Flow FiO2 Time Delivery Rate 04/19/19 97.8 98 18 136/85 97 07:48 (102) 04/18/19 Room Air 04:00 Intake and Output 04/18/19 04/18/19 04/19/19 1414:59 22:59 06:59 IntakeIntake Total 360 ml 50 ml 440 ml BalanceBalance 360 ml 50 ml 440 ml Results/Medications Result Diagram: 04/18/19 1006 04/18/19 1006 Home Meds Active Scripts Lorazepam* (Lorazepam*) 1 Mg Tablet, 1 MG PO BID PRN for ANXIETY, #20 TAB Prov:PUJA BINGHAM MD 04/07/19 Hydrocodone/Acetaminophen ([place] 10-325 Tablet) 1 Each Tablet, 1 EACH PO BID PRN for PAIN LEVEL 6-10, #30 TAB Prov:PUJA BINGHAM MD 04/07/19 Reported Medications Zolpidem Tartrate* (Ambien*) 10 Mg Tablet, 10 MG PO QHS PRN for INSOMNIA, TAB 04/04/19 Salmeterol Xinaf/Fluticasone* (Advair*) 250-50 Diskus Inhaler, 1 INH INHALATION BID, #1 INHALER 04/04/19 Carisoprodol* (Carisoprodol*) 350 Mg Tablet, 350 MG PO Q8 PRN for MUSCLE SPASMS, TAB 04/04/19 Potassium Chloride* (Potassium Chloride*) 8 Meq Capsule.er, 8 MEQ PO DAILY, CAP 04/04/19 Duloxetine Hcl* (Duloxetine Hcl*) 60 Mg Capsule.dr, 60 MG PO DAILY, #30 CAP 04/04/19 Clopidogrel Bisulfate* (Clopidogrel Bisulfate*) 75 Mg Tablet, 75 MG PO DAILY, #30 TAB 04/04/19 Carvedilol* (Carvedilol*) 3.125 Mg Tablet, 3.125 MG PO BID, #60 TAB 04/04/19 Albuterol Sulfate* (Ventolin HFA*) 18 Gm Hfa.aer.ad, 2 PUFF INHALATION Q4H, #1 INHALER 04/04/19 Simvastatin* (Zocor*) 10 Mg Tablet, 10 MG PO QHS, #30 TAB 04/04/19 Lisinopril/Hydrochlorothiazide (Lisinopril-Hctz 20-12.5 mg Tab) 1 Each Tablet, 1 EACH PO DAILY, TAB 04/04/19 Aspirin* (Aspirin* EC) 81 Mg Tablet.dr, 81 MG PO DAILY, TAB 04/04/19 Discontinued Scripts Sulfamethoxazole/Trimethoprim (Sulfamethoxazole-Tmp Ds Tablet) 1 Each Tablet, 1 TAB PO BID for 5 Days, #10 TAB Prov:PUJA BINGHAM MD 04/07/19 Methylprednisolone* (Medrol* DOSE PACK) 4 Mg/Dose-Pack Tab.ds.pk, 4 MG PO . DIRECTED for 6 Days, PACKET Prov:PUJA BINGHAM MD 04/07/19 Medications Current Medications Meropenem/Sodium Chloride 50 ml @ 100 mls/hr Q12 IVPB Last administered on 04/19/19at 09:01; Admin Dose 100 MLS/HR; Start 04/17/19 at 09:00 Aspirin (Halfprin) 81 mg DAILY PO Last administered on 04/18/19at 09:04; Admin Dose 81 MG; Start 04/17/19 at 09:00 Carisoprodol (Soma) 350 mg Q8 PRN PO MUSCLE SPASMS Last administered on 04/18/19at 20:34; Admin Dose 350 MG; Start 04/17/19 at 02:00 Duloxetine HCl (Cymbalta) 60 mg DAILY PO Last administered on 04/18/19 09:05; Admin Dose 60 MG; Start 04/17/19 at 09:00 Lorazepam (Ativan) 1 mg BID PRN PO ANXIETY Last administered on 04/18/19 10:47; Admin Dose 1 MG; Start 04/17/19 at 02:00 Potassium Chloride (Micro-K) 8 meq DAILY PO Last administered on 04/18/19 09:10; Admin Dose 8 MEQ; Start 04/17/19 at 09:00 Zolpidem Tartrate (Ambien) 10 mg QHS PRN PO INSOMNIA Last administered on 9at 20:34; Admin Dose 10 MG; Start 04/17/19 at 02:00 Metoclopramide HCl (Reglan) 10 mg Q6H PRN IV NAUSEA Last administered on 04/19/19 09:03; Admin Dose 10 MG; Start 04/17/19 at 02:00 Heparin Sodium (Porcine) (Heparin (5000 Units/1ml)) 5,000 unit BID SC Last administered on 04/18/19 09:22; Admin Dose 5,000 UNIT; Start 04/17/19 at 09:00 Atorvastatin Calcium (Lipitor) 10 mg HS PO Last administered on 04/18/19 20:23; Admin Dose 10 MG; Start 04/17/19 at 21:00 Lisinopril (Zestril) 20 mg DAILY PO Last administered on 04/18/19 09:04; Admin Dose 20 MG; Start 04/17/19 at 09:00 Hydrochlorothiazide (Hydrochlorothiazide) 12.5 mg DAILY PO Last administered on 04/18/19 09:04; Admin Dose 12.5 MG; Start 04/17/19 at 09:00 Fluticasone/ Vilanterol (Breo Ellipta 100-25 Mcg Inh) 1 inh DAILY INH Last administered on 04/19/19 09:02; Admin Dose 1 INH; Start 04/17/19 at 09:00 Albuterol (Ventolin Hfa) 2 puff Q4H RESP THERAPY PRN INH SHORTNESS OF BREATH; Start 04/17/19 at 04:07 Pantoprazole (Protonix Tab) 40 mg BID@,18 PO Last administered on 04/18/19 17:39; Admin Dose 40 MG; Start 04/17/19 at 18:00 Diphenhydramine HCl (Benadryl) 25 mg Q6H PRN PO ITCHING; Start 04/18/19 at 03:30 Acetaminophen/ Hydrocodone Bitart ([place] (10/325)) 1 tab Q6 PRN PO PAIN LEVEL 6-10 Last administered on 04/19/19at 06:30; Admin Dose 1 TAB; Start 04/18/19 at 11:00 Hydromorphone HCl (Dilaudid) 0.5 mg Q6H PRN IV SEVERE PAIN LEVEL 7-10 Last administered on 04/19/19at 10:17; Admin Dose 0.5 MG; Start 04/19/19 at 09:30 Assessment/Plan Hospital Course (Demo Recall) chest pain: Appears to be atypical and nonanginal related to her GI symptoms. Patient also with recent negative stress test per her report Coronary artery disease with history of PA and PCI 2010 Hypertension Abnormal EKG appears to be chronic is been reported in the previous years as well Asthma /COPD Ex-smoker Dyslipidemia Nausea vomiting diarrhea and possibly melena CV PREOP : FOR EGD Recommendations: off the Plavix given her possible melena. Continue with aspirin as long as okay from GI standpoint off the Coreg given her wheezing and severe pulmonary disease Risk factor modification including statin to be continued and adjusted to the goal LDL of less than 70 GI work-up as per internal medicine./ GI awaiting EGD. pt is stable now with low risk of cv events pt was ruled out for myocardial infarction with serial cardiac enzyme Pulmonary work-up and treatment as per internal medicine. Patient has reported that she has had a recent stress test on at the outside facility which was normal. Given her very atypical pain and wheezing I do not see an indication to do another stress test here Thank you for his referral. We will continue to follow along with you as needed. GURMEET VIVAS MD [facility] GURMETE VIVAS MD Apr 19, 2019 11:00
--- NOTE | 2019-04-19 11:19 | PN ---
DATE: 04/19/2019 SUBJECTIVE: The patient complained of diffuse abdominal pain as well as back pain. The patient stat es that she is on chronic [place] with minimal improvement in her longstanding chronic back pain. The patient is requesting morphine or Dilaudid. No other events noted. No hemoptysis, hematemesis, val tochezia. OBJECTIVE: VITAL SIGNS: Blood pressure 136/85, pulse 95, respiration 18, temperature 97.5. HEENT: Head is normocephalic. NECK: Supple. HEART: Regular rate. LUNGS: Show diminished breath sounds at the base. ABDOMEN: Soft, positive tenderness to palpation. EXTREMITIES: Negative for clubbing, cyanosis, no edema. DERMATOLOGIC: No rashes. MUSCULOSKELETAL: No joint effusions. NEUROLOGIC: No focal deficits. MEDICATIONS: The patient's medications have been reviewed. LABORATORY DATA: Have been reviewed. IMAGING STUDIES: The imaging studies have been reviewed. ASSESSMENT AND PLAN: 1. Urinary tract infection. Continue current antibiotic regimen and monitor closely. 2. Abdominal pain. The patient is undergoing EGD. Continue Protonix. 3. Chronic back pain. The patient's NSAID is currently on hold. Will continue [place] and will add D ilaudid for breakthrough pain, monitor closely. Consider imaging studies. 4. Depression. Continue Cymbalta. 5. Coronary artery disease. Continue medical management and follow up with cardiology. 6. Anxiety disorder. Continue Ativan and Cymbalta. 7. TI and deep venous thrombosis prophylaxis. Dictated By: VINCENT ORTIZ/MAGGIE Conf#: [id number] DID#: [id number] CC: PUJA BINGHAM MD;*EndCC*
--- NOTE | 2019-04-19 14:58 | PREAC ---
Date/Time of Note Date/Time of Note DATE: 04/19/19 TIME: 14:56 Anesthesia Eval and Record Evaluation Time Pre-Procedure Interview DATE: 04/19/19 TIME: 14:56 Age 63 Sex female NPO: 8 hrs Preoperative diagnosis abdo pain Planned procedure egd Past Medical History Past Medical History: Includes Cardio: HTN, PTCA/Stent Pulm: Asthma GI: Obesity Heme: Anemia Surgery & Anesthesia Issues No known issue Meds Anticoagulation: No Beta Vasile within 24 hr: No Reason Beta Vasile not given: Pt. not on B-Vasile Active Scripts Lorazepam* (Lorazepam*) 1 Mg Tablet, 1 MG PO BID PRN for ANXIETY, #20 TAB Prov:PUJA BINGHAM MD 04/07/19 Hydrocodone/Acetaminophen ([place] 10-325 Tablet) 1 Each Tablet, 1 EACH PO BID PRN for PAIN LEVEL 6-10, #30 TAB Prov:PUJA BINGHAM MD 04/07/19 Reported Medications Zolpidem Tartrate* (Ambien*) 10 Mg Tablet, 10 MG PO QHS PRN for INSOMNIA, TAB 04/04/19 Salmeterol Xinaf/Fluticasone* (Advair*) 250-50 Diskus Inhaler, 1 INH INHALATION BID, #1 INHALER 04/04/19 Carisoprodol* (Carisoprodol*) 350 Mg Tablet, 350 MG PO Q8 PRN for MUSCLE SPASMS, TAB 04/04/19 Potassium Chloride* (Potassium Chloride*) 8 Meq Capsule.er, 8 MEQ PO DAILY, CAP 04/04/19 Duloxetine Hcl* (Duloxetine Hcl*) 60 Mg Capsule.dr, 60 MG PO DAILY, #30 CAP 04/04/19 Clopidogrel Bisulfate* (Clopidogrel Bisulfate*) 75 Mg Tablet, 75 MG PO DAILY, #30 TAB 04/04/19 Carvedilol* (Carvedilol*) 3.125 Mg Tablet, 3.125 MG PO BID, #60 TAB 04/04/19 Albuterol Sulfate* (Ventolin HFA*) 18 Gm Hfa.aer.ad, 2 PUFF INHALATION Q4H, #1 INHALER 04/04/19 Simvastatin* (Zocor*) 10 Mg Tablet, 10 MG PO QHS, #30 TAB 04/04/19 Lisinopril/Hydrochlorothiazide (Lisinopril-Hctz 20-12.5 mg Tab) 1 Each Tablet, 1 EACH PO DAILY, TAB 04/04/19 Aspirin* (Aspirin* EC) 81 Mg Tablet.dr, 81 MG PO DAILY, TAB 04/04/19 Discontinued Scripts Sulfamethoxazole/Trimethoprim (Sulfamethoxazole-Tmp Ds Tablet) 1 Each Tablet, 1 TAB PO BID for 5 Days, #10 TAB Prov:PUJA BINGHAM MD 04/07/19 Methylprednisolone* (Medrol* DOSE PACK) 4 Mg/Dose-Pack Tab.ds.pk, 4 MG PO . DIRECTED for 6 Days, PACKET Prov:PUJA BINGHAM MD 04/07/19 Current Medications Meropenem/Sodium Chloride 50 ml @ 100 mls/hr Q12 IVPB Last administered on 04/19/19 09:01; Admin Dose 100 MLS/HR; Start 04/17/19 at 09:00 Aspirin (Halfprin) 81 mg DAILY PO Last administered on 04/18/19 09:04; Admin Dose 81 MG; Start 04/17/19 at 09:00 Carisoprodol (Soma) 350 mg Q8 PRN PO MUSCLE SPASMS Last administered on 04/18/19 20:34; Admin Dose 350 MG; Start 04/17/19 at 02:00 Duloxetine HCl (Cymbalta) 60 mg DAILY PO Last administered on 04/18/19 09:05; Admin Dose 60 MG; Start 04/17/19 at 09:00 Lorazepam (Ativan) 1 mg BID PRN PO ANXIETY Last administered on 04/18/19 10:47; Admin Dose 1 MG; Start 04/17/19 at 02:00 Potassium Chloride (Micro-K) 8 meq DAILY PO Last administered on 04/18/19 09:10; Admin Dose 8 MEQ; Start 04/17/19 at 09:00 Zolpidem Tartrate (Ambien) 10 mg QHS PRN PO INSOMNIA Last administered on 04/18/19 20:34; Admin Dose 10 MG; Start 04/17/19 at 02:00 Metoclopramide HCl (Reglan) 10 mg Q6H PRN IV NAUSEA Last administered on 04/19/19 09:03; Admin Dose 10 MG; Start 04/17/19 at 02:00 Heparin Sodium (Porcine) (Heparin (5000 Units/1ml)) 5,000 unit BID SC Last administered on 04/18/19 09:22; Admin Dose 5,000 UNIT; Start 04/17/19 at 09:00 Atorvastatin Calcium (Lipitor) 10 mg HS PO Last administered on 04/18/19 20:23; Admin Dose 10 MG; Start 04/17/19 at 21:00 Lisinopril (Zestril) 20 mg DAILY PO Last administered on 04/18/19 09:04; Admin Dose 20 MG; Start 04/17/19 at 09:00 Hydrochlorothiazide (Hydrochlorothiazide) 12.5 mg DAILY PO Last administered on 04/18/19 09:04; Admin Dose 12.5 MG; Start 04/17/19 at 09:00 Fluticasone/ Vilanterol (Breo Ellipta 100-25 Mcg Inh) 1 inh DAILY INH Last administered on 04/19/19 09:02; Admin Dose 1 INH; Start 04/17/19 at 09:00 Albuterol (Ventolin Hfa) 2 puff Q4H RESP THERAPY PRN INH SHORTNESS OF BREATH; Start 04/17/19 at 04:07 Pantoprazole (Protonix Tab) 40 mg BID@06,18 PO Last administered on 04/18/19 17:39; Admin Dose 40 MG; Start 04/17/19 at 18:00 Diphenhydramine HCl (Benadryl) 25 mg Q6H PRN PO ITCHING; Start 04/18/19 at 03:30 Acetaminophen/ Hydrocodone Bitart ([place] (10/325)) 1 tab Q6 PRN PO PAIN LEVEL 6-10 Last administered on 04/19/19 06:30; Admin Dose 1 TAB; Start 04/18/19 at 11:00 Hydromorphone HCl (Dilaudid) 0.5 mg Q6H PRN IV SEVERE PAIN LEVEL 7-10 Last administered on 04/19/19 10:17; Admin Dose 0.5 MG; Start 04/19/19 at 09:30 Meds reviewed: Yes Allergies Coded Allergies: ciprofloxacin (Unverified Allergy, Severe, 04/04/19) cephalexin (Unverified Allergy, Intermediate, REDNESS, SWELLING, ITCHING, 04/04/19) ondansetron (Unverified Allergy, Mild, ITCHY, 04/04/19) Allergies Reviewed: Yes Labs/Studies Labs Reviewed: Reviewed by anesthesiologist Result Diagram: 04/18/19 1006 04/18/19 1006 test: Negative Pre-procedure Exam Last vitals Vital Signs Date Temp Pulse Resp B/P (MAP) Pulse Ox O2 O2 Flow FiO2 Time Delivery Rate 04/19/19 98.2 101 16 133/86 94 Room Air 14:12 (102) Airway: Adequate mouth opening Mallampati: Mallampati I Teeth: Normal Lung: Normal Heart: Normal ASA Physical Status ASA physical status: 2 Emergency: None Planned Anesthetic General/MAC: MAC Pre-operative Attestations Prior to commencing anesthesia and surgery, the patient was re-evaluated, there was verification of: *The patient's identity *The results of appropriate recent lab work and preoperative vital signs *The above evaluation not changing prior to induction *Anesthetic plan, risk benefits, alternative and complications discussed with patient/family; questions answered; patient/family understands, accepts and wishes to proceed. KAVON GAN MD Apr 19, 2019 14:58
[2019-04-19] MEDS ORDERED: ETOMIDATE 20 MG INJ ONE (15:01)
[2019-04-19] MEDS ORDERED: PROPOFOL 20 ML ONE (15:01)
[2019-04-19] MEDS ORDERED: DIPHENHYDRAMINE 50 MG INJ IV STA (15:45)
[2019-04-19] MEDS ORDERED: DIPHENHYDRAMINE 50 MG INJ ONE (15:47)
--- NOTE | 2019-04-19 15:56 | PAC ---
Date/Time of Note Date/Time of Note DATE: 04/19/19 TIME: 15:56 Post-Anesthesia Notes Post-Anesthesia Note Last documented vital signs Vital Signs Date Temp Pulse Resp B/P (MAP) Pulse Ox O2 O2 Flow FiO2 Time Delivery Rate 04/19/19 98.2 101 16 133/86 94 Room Air 14:12 (102) Activity: WNL Respiratory function: WNL Cardiovascular function: WNL Mental status: Baseline Pain reasonably controlled: Yes Hydration appropriate: Yes Nausea/Vomiting absent: Yes KAVON GAN MD Apr 19, 2019 15:56
[2019-04-19] MEDS: CARISOPRODOL 350 MG TAB PO PRN (17:29)
[2019-04-19] MEDS: ATORVASTATIN 10 MG TAB PO SCH ×2 (20:27→20:29)
[2019-04-19] MEDS: ZOLPIDEM 5 MG TAB PO PRN (22:45)
[2019-04-20] MEDS: METOCLOPRAMIDE 10 MG INJ IV PRN (01:37)
[2019-04-20] MEDS: HYDROmorphONE 0.5 MG/0.5 ML SYG IV PRN (03:03)
[2019-04-20 03:30] VITALS: BP 147/88; PULSE 93; RESP 20
[2019-04-20] MEDS ORDERED: DIPHENHYDRAMINE 50 MG INJ IV ONE (03:30)
[2019-04-20] MEDS: PANTOPRAZOLE (EC) 40 MG TAB PO SCH ×2 (05:55→18:00)
[2019-04-20] MEDS: HYDROCODONE/APAP (10/325) TAB PO PRN ×3 (06:01→18:01)
[2019-04-20] MEDS ORDERED: POLYETHYLENE GLYCOL 17 GM PACKET PO PRN (07:00)
[2019-04-20 08:14] VITALS: BP 101/62; PULSE 87; RESP 18
[2019-04-20 08:54] VITALS: BP 128/66; PULSE 83
[2019-04-20] MEDS: FLUTICASONE/VILANTEROL 100-25 INH SCH (09:00)
[2019-04-20] MEDS: DULOXETINE 30 MG CAP DR PO SCH (09:00)
[2019-04-20] MEDS: HEPARIN 5,000 UNIT/1 ML VIAL SC SCH ×2 (09:00→20:43)
[2019-04-20] MEDS: SENNA TAB PO SCH ×2 (09:00→20:41)
[2019-04-20] MEDS: POTASSIUM CHLORIDE (SR) 8 MEQ CAP PO SCH (09:00)
[2019-04-20] MEDS: LISINOPRIL 20 MG TAB PO SCH (09:00)
[2019-04-20] MEDS: ASPIRIN (EC) 81 MG TAB PO SCH (09:00)
[2019-04-20] MEDS: MEROPENEM 1 GM/50ML(PMX) 50 ML IVPB SCH ×2 (09:01→20:40)
[2019-04-20] MEDS: HYDROCHLOROTHIAZIDE 12.5 MG CAP PO SCH (09:01)
--- NOTE | 2019-04-20 09:03 | PN ---
DATE: 04/20/2019 SUBJECTIVE: The patient had EGD yesterday. Results are pending. The patient also was given Dilaudi d yesterday due to severe back pain, chronic. The patient developed a rash, hives; Dilaudid was subs equently discontinued. No other events noted. OBJECTIVE: VITAL SIGNS: Blood pressure is 101/62, respiration 18, pulse 87, temperature 98.1. HEENT: Head is normocephalic. NECK: Supple. HEART: Regular rate. LUNGS: Show diminished breath sounds at the base. ABDOMEN: Soft, nontender to palpation. EXTREMITIES: Negative for clubbing, cyanosis, no edema. DERMATOLOGIC: No rashes. MUSCULOSKELETAL: No joint effusions. NEUROLOGIC: No change in exam. MEDICATIONS: Reviewed. LABORATORY DATA: Has been reviewed. IMAGING STUDIES: Have been reviewed. ASSESSMENT AND PLAN: 1. Urinary tract infection. The patient is completing antibiotic course. 2. Abdominal pain, status post EGD. Continue Protonix. Follow up results. 3. Chronic back pain. Will continue the patient's [place]. Dilaudid will be discontinued due to rash . 4. Rash secondary to Dilaudid, improving. Continue Benadryl. 5. Depression. Continue Cymbalta. 6. Coronary artery disease. Continue medical management. Follow up with cardiology. 7. Anxiety disorder. Continue Ativan, Cymbalta. 8. History of deep venous thrombosis. Dictated By: VINCENT ORTIZ/NTS Conf#: [id number] DID#: [id number] CC: PUJA BINGHAM MD;*End*
--- NOTE | 2019-04-20 10:45 | CONS ---
Assessment/Plan Assessment/Plan Assessment/Plan (Daily) IMPRESSION: 1. Epigastric pain, atypical chest pain. 2. Passing black colored stool. 3. Coronary artery disease with history of myocardial infarction and PCI in 2010. 4. Hypertension. 5. Chronic obstructive pulmonary disease. 6. Dyslipidemia. 7. Nausea and vomiting. 8. Chronic pain syndrome. Plan Continue PPI Monitor H&H Patient needs colonoscopy. She declined it now. She wants to get it as an outpatient Consultation Date/Type/Reason Admit Date/Time Apr 16, 2019 at 22:43 Initial Consult Date 04/17/19 Requesting Provider: PUJA BINGHAM MD Date/Time of Note DATE: 04/20/19 TIME: 10:44 24 HR Interval Summary Constitutional: no complaints, improved Exam/Review of Systems Exam Vitals Vital Signs Date Temp Pulse Resp B/P (MAP) Pulse Ox O2 O2 Flow FiO2 Time Delivery Rate 04/20/19 83 128/66 08:54 (86) 04/20/19 98.1 18 97 08:14 04/19/19 Room Air 15:51 Intake and Output 04/19/19 04/19/19 04/20/19 1414:59 22:59 06:59 IntakeIntake Total 50 ml 480 ml BalanceBalance 50 ml 480 ml Constitutional: alert, oriented, well developed Psych: no complaints, nl mood/affect Head: normocephalic, atraumatic Eyes: nl conjunctiva, EOMI, nl lids, nl sclera, PERRL ENMT: nl external ears & nose, nl lips & teeth, nl nasal mucosa & septum Neck: supple, non-tender Respiratory: clear to auscultation, normal air movement Cardiovascular: regular rate and rhythm, nl pulses Gastrointestinal: soft, nl liver, spleen, non-tender Musculoskeletal: nl extremities to inspection, nl gait and stance Extremities: normal pulses Neurological: SWATCH PASTER II-XII intact, nl mental status, nl speech, nl strength Skin: nl turgor; No rash or lesions Lymph: nl lymph nodes Results Result Diagram: 04/20/19 0648 04/20/19 0648 Results 24hrs Laboratory Tests Test 04/20/19 06:48 White Blood Count 8.7 Red Blood Count 3.66 L Hemoglobin 9.7 L Hematocrit 30.7 L Mean Corpuscular Volume 83.9 Mean Corpuscular Hemoglobin 26.5 L Mean Corpuscular Hemoglobin Concent 31.6 L Red Cell Distribution Width 15.7 H Platelet Count 250 Mean Platelet Volume 9.6 Immature Granulocytes % 0.600 H Neutrophils % 62.6 Lymphocytes % 25.1 Monocytes % 6.8 Eosinophils % 4.2 Basophils % 0.7 Nucleated Red Blood Cells % 0.0 Immature Granulocytes # 0.050 H Neutrophils # 5.4 Lymphocytes # 2.2 Monocytes # 0.6 Eosinophils # 0.4 Basophils # 0.1 Nucleated Red Blood Cells # 0.0 Sodium Level 141 Potassium Level 3.6 Chloride Level 106 Carbon Dioxide Level 30 Anion Gap 5 Blood Urea Nitrogen 15 Creatinine 0.71 Est Glomerular Filtrat Rate mL/min > 60 Glucose Level 127 Calcium Level 8.7 Phosphorus Level 4.6 Magnesium Level 2.0 Medications Medication Current Medications Meropenem/Sodium Chloride 50 ml @ 100 mls/hr Q12 IVPB Last administered on 04/20/19 09:01; Admin Dose 100 MLS/HR; Start 04/17/19 at 09:00 Aspirin (Halfprin) 81 mg DAILY PO Last administered on 04/20/19 09:00; Admin Dose 81 MG; Start 04/17/19 at 09:00 Carisoprodol (Soma) 350 mg Q8 PRN PO MUSCLE SPASMS Last administered on 04/19/19 17:29; Admin Dose 350 MG; Start 04/17/19 at 02:00 Duloxetine HCl (Cymbalta) 60 mg DAILY PO Last administered on 04/20/19 09:00; Admin Dose 60 MG; Start 04/17/19 at 09:00 Lorazepam (Ativan) 1 mg BID PRN PO ANXIETY Last administered on 04/18/19 10:47; Admin Dose 1 MG; Start 04/17/19 at 02:00 Potassium Chloride (Micro-K) 8 meq DAILY PO Last administered on 04/20/19 09:00; Admin Dose 8 MEQ; Start 04/17/19 at 09:00 Zolpidem Tartrate (Ambien) 10 mg QHS PRN PO INSOMNIA Last administered on 04/19/19 22:45; Admin Dose 10 MG; Start 04/17/19 at 02:00 Metoclopramide HCl (Reglan) 10 mg Q6H PRN IV NAUSEA Last administered on 04/20/19 01:37; Admin Dose 10 MG; Start 04/17/19 at 02:00 Heparin Sodium (Porcine) (Heparin (5000 Units/1ml)) 5,000 unit BID SC Last adm inistered on 04/18/19 09:22; Admin Dose 5,000 UNIT; Start 04/17/19 at 09:00 Atorvastatin Calcium (Lipitor) 10 mg HS PO Last administered on 04/19/19 20:29; Admin Dose 10 MG; Start 04/17/19 at 21:00 Lisinopril (Zestril) 20 mg DAILY PO Last administered on 04/20/19 09:00; Admin Dose 20 MG; Start 04/17/19 at 09:00 Hydrochlorothiazide (Hydrochlorothiazide) 12.5 mg DAILY PO Last administered on 04/20/19 09:01; Admin Dose 12.5 MG; Start 04/17/19 at 09:00 Fluticasone/ Vilanterol (Breo Ellipta 100-25 Mcg Inh) 1 inh DAILY INH Last administered on 04/19/19 09:02; Admin Dose 1 INH; Start 04/17/19 at 09:00 Albuterol (Ventolin Hfa) 2 puff Q4H RESP THERAPY PRN INH SHORTNESS OF BREATH; Start 04/17/19 at 04:07 Pantoprazole (Protonix Tab) 40 mg BID@06,18 PO Last administered on 04/20/19at 05:55; Admin Dose 40 MG; Start 04/17/19 at 18:00 Diphenhydramine HCl (Benadryl) 25 mg Q6H PRN PO ITCHING; Start 04/18/19 at 03:30 Acetaminophen/ Hydrocodone Bitart ([place] (10/325)) 1 tab Q6 PRN PO PAIN LEVEL 6-10 Last administered on 04/20/19 06:01; Admin Dose 1 TAB; Start 04/18/19 at 11:00 Tramadol HCl (Ultram) 50 mg Q6H PRN PO MODERATE PAIN LEVEL 4-6; Start 04/20/19 at 04:00 Senna (Senokot) 1 tab BID PO Last administered on 04/20/19 09:00; Admin Dose 1 TAB; Start 04/20/19 at 09:00 Polyethylene Glycol (Miralax) 17 gm DAILY PRN PO CONSTIPATION; Start 04/20/19 at 07:00 CATRACHITA RIVERA MD Apr 20, 2019 10:45
[2019-04-20] MEDS: CARISOPRODOL 350 MG TAB PO PRN ×2 (11:45→22:18)
[2019-04-20 12:00] VITALS: BP 111/62; PULSE 85; RESP 18
[2019-04-20 15:27] VITALS: BP 115/77; PULSE 88; RESP 18
[2019-04-20 20:00] VITALS: BP 112/58; PULSE 84; RESP 18
[2019-04-20] MEDS: ATORVASTATIN 10 MG TAB PO SCH (20:41)
[2019-04-20] MEDS: traMADol 50 MG TAB PO PRN (20:41)
[2019-04-20] MEDS: ZOLPIDEM 5 MG TAB PO PRN (20:41)
[2019-04-21] VITALS: BP 113/61; PULSE 86; RESP 18
[2019-04-21 04:00] VITALS: BP 138/74; PULSE 79; RESP 18
[2019-04-21] MEDS: PANTOPRAZOLE (EC) 40 MG TAB PO SCH (05:12)
[2019-04-21] MEDS: HYDROCODONE/APAP (10/325) TAB PO PRN (05:13)
[2019-04-21 07:29] VITALS: BP 120/78; PULSE 92; RESP 17
[2019-04-21] MEDS: POTASSIUM CHLORIDE (SR) 8 MEQ CAP PO SCH (08:55)
[2019-04-21] MEDS: DULOXETINE 30 MG CAP DR PO SCH (08:55)
[2019-04-21] MEDS: SENNA TAB PO SCH (08:55)
[2019-04-21] MEDS: ASPIRIN (EC) 81 MG TAB PO SCH (08:55)
[2019-04-21] MEDS: LISINOPRIL 20 MG TAB PO SCH (08:56)
[2019-04-21] MEDS: HYDROCHLOROTHIAZIDE 12.5 MG CAP PO SCH (08:56)
[2019-04-21] MEDS: CARISOPRODOL 350 MG TAB PO PRN (08:56)
[2019-04-21] MEDS: traMADol 50 MG TAB PO PRN (08:57)
[2019-04-21] MEDS: MEROPENEM 1 GM/50ML(PMX) 50 ML IVPB SCH (08:57)
[2019-04-21] MEDS: FLUTICASONE/VILANTEROL 100-25 INH SCH (08:58)
[2019-04-21] MEDS: HEPARIN 5,000 UNIT/1 ML VIAL SC SCH (08:58)
--- NOTE | 2019-04-21 09:34 | DS ---
DATE OF ADMISSION: 04/16/2019 DATE OF DISCHARGE: HOSPITAL COURSE: This is a 63-year-old female with a past medical history of hypertension, dyslipide [place], history of coronary artery disease, status post PCI, history of tobacco use, history of chronic back pain who presents to [facility] with abdominal pain, nausea, vomiting, black s tools. The patient in the emergency room was diagnosed with a urinary tract infection and was starte d on IV antibiotics and admitted to telemetry. In terms of patient's abdominal pain, the patient was seen by Gastroenterology. She had an EGD performed which showed findings of gastritis. The patient was placed on PPI. The patient's abdominal pain has improved with the recommendation being made for colonoscopy which will be done in the outpatient setting. In terms of patient's urinary tract infec tion, the patient completed five days of IV antibiotics. No longer complains of dysuria and is curr ently stable. The patient does have chronic pain of her back and has been receiving intermittent Nor co. The patient will follow up with her outpatient pain doctor for pain management. The patient's o ther problems included one episode of a rash which resolved secondary to Dilaudid which was subsequen tly discontinued. The patient's other medical problems including coronary artery disease, anxiety di sorder, depression have been stable. Currently, at this time, the patient will be discharged home, w here she will follow up with her primary care physician. At time of discharge, the patient is in no acute distress. FINAL MEDICATIONS: The patient will resume home regimen of: 1. Aspirin. 2. Coreg. 3. Plavix. 4. Carisoprodol. 5. Duloxetine. 6. [place]. 7. Lisinopril. 8. Lorazepam. 9. Advair. 10. Zocor. 11. Ambien. FINAL DIAGNOSES: 1. Urinary tract infection. 2. Abdominal pain secondary to gastritis. 3. Chronic back pain. 4. Depression 5. Coronary artery disease. 6. Anxiety disorder. 7. Hypertension. At time of discharge the patient is stable, in no acute distress. Dictated By: VINCENT BARTLETT DO NR/NTS Conf#: [id number] DID#: [id number] CC: PUJA BINGHAM MD;*EndCC*
[2019-04-21 11:45] VITALS: BP 144/102; PULSE 91; RESP 18
[2019-04-21 12:03] VITALS: BP 110/54
--- NOTE | 2019-04-21 13:54 | CONS ---
Assessment/Plan Assessment/Plan Assessment/Plan (Daily) Assessment/Plan (Daily) IMPRESSION: 1. Epigastric pain, atypical chest pain. 2. Passing black colored stool. 3. Coronary artery disease with history of myocardial infarction and PCI in 2010. 4. Hypertension. 5. Chronic obstructive pulmonary disease. 6. Dyslipidemia. 7. Nausea and vomiting. 8. Chronic pain syndrome. Plan Continue PPI Monitor H&H Patient needs colonoscopy. She declined it now. She wants to get it as an outpatient Consultation Date/Type/Reason Admit Date/Time Apr 16, 2019 at 22:43 Initial Consult Date 04/17/19 Requesting Provider: PUJA BINGHAM MD Date/Time of Note DATE: 04/21/19 TIME: 13:53 24 HR Interval Summary Constitutional: no complaints, improved Exam/Review of Systems Exam Vitals Vital Signs Date Temp Pulse Resp B/P (MAP) Pulse Ox O2 O2 Flow FiO2 Time Delivery Rate 04/21/19 110/54 12:03 (72) 04/21/19 98.0 91 18 97 11:45 04/19/19 Room Air 15:51 Intake and Output 04/20/19 04/20/19 04/21/19 1515:00 23:00 07:00 IntakeIntake Total 410 ml 290 ml BalanceBalance 410 ml 290 ml Constitutional: alert, oriented, well developed Psych: no complaints, nl mood/affect Head: normocephalic, atraumatic Eyes: nl conjunctiva, EOMI, nl lids, nl sclera, PERRL ENMT: nl external ears & nose, nl lips & teeth, nl nasal mucosa & septum Neck: supple, non-tender Respiratory: clear to auscultation, normal air movement Cardiovascular: regular rate and rhythm, nl pulses Gastrointestinal: soft, nl liver, spleen, non-tender Musculoskeletal: nl extremities to inspection, nl gait and stance Extremities: normal pulses Neurological: BLOOD BANK LABORATORY TECHNOLOGIST II-XII intact, nl mental status, nl speech, nl strength Skin: nl turgor; No rash or lesions Lymph: nl lymph nodes Results Result Diagram: 04/20/1964704/20/19647 Medications Medication Current Medications Meropenem/Sodium Chloride 50 ml @ 100 mls/hr Q12 IVPB Last administered on 04/21/19at 08:57; Admin Dose 100 MLS/HR; Start 04/17/19 at 09:00 Aspirin (Halfprin) 81 mg DAILY PO Last administered on 04/21/19 08:55; Admin Dose 81 MG; Start 04/17/19 at 09:00 Carisoprodol (Soma) 350 mg Q8 PRN PO MUSCLE SPASMS Last administered on 04/21/19 08:56; Admin Dose 350 MG; Start 04/17/19 at 02:00 Duloxetine HCl (Cymbalta) 60 mg DAILY PO Last administered on 04/21/19 08:55; Admin Dose 60 MG; Start 04/17/19 at 09:00 Lorazepam (Ativan) 1 mg BID PRN PO ANXIETY Last administered on 04/18/19 10:47; Admin Dose 1 MG; Start 04/17/19 at 02:00 Potassium Chloride (Micro-K) 8 meq DAILY PO Last administered on 04/21/19 08:55; Admin Dose 8 MEQ; Start 04/17/19 at 09:00 Zolpidem Tartrate (Ambien) 10 mg QHS PRN PO INSOMNIA Last administered on 04/20/19 20:41; Admin Dose 10 MG; Start 04/17/19 at 02:00 Metoclopramide HCl (Reglan) 10 mg Q6H PRN IV NAUSEA Last administered on 04/20/19 01:37; Admin Dose 10 MG; Start 04/17/19 at 02:00 Heparin Sodium (Porcine) (Heparin (5000 Units/1ml)) 5,000 unit BID SC Last administered on 04/18/19 09:22; Admin Dose 5,000 UNIT; Start 04/17/19 at 09:00 Atorvastatin Calcium (Lipitor) 10 mg HS PO Last administered on 04/20/19 20:41; Admin Dose 10 MG; Start 04/17/19 at 21:00 Lisinopril (Zestril) 20 mg DAILY PO Last administered on 04/21/19 08:56; Admin Dose 20 MG; Start 04/17/19 at 09:00 Hydrochlorothiazide (Hydrochlorothiazide) 12.5 mg DAILY PO Last administered on 04/21/19 08:56; Admin Dose 12.5 MG; Start 04/17/19 at 09:00 Fluticasone/ Vilanterol (Breo Ellipta 100-25 Mcg Inh) 1 inh DAILY INH Last administered on 04/19/19 09:02; Admin Dose 1 INH; Start 04/17/19 at 09:00 Albuterol (Ventolin Hfa) 2 puff Q4H RESP THERAPY PRN INH SHORTNESS OF BREATH; Start 04/17/19 at 04:07 Pantoprazole (Protonix Tab) 40 mg BID@06,18 PO Last administered on 04/21/19at 05:12; Admin Dose 40 MG; Start 04/17/19 at 18:00 Diphenhydramine HCl (Benadryl) 25 mg Q6H PRN PO ITCHING; Start 04/18/19 at 03:30 Acetaminophen/ Hydrocodone Bitart ([place] (10/325)) 1 tab Q6 PRN PO PAIN LEVEL 6-10 Last administered on 04/21/19 05:13; Admin Dose 1 TAB; Start 04/18/19 at 11:00 Tramadol HCl (Ultram) 50 mg Q6H PRN PO MODERATE PAIN LEVEL 4-6 Last administered on 04/21/19at 08:57; Admin Dose 50 MG; Start 04/20/19 at 04:00 Senna (Senokot) 1 tab BID PO Last administered on 04/21/19 08:55; Admin Dose 1 TAB; Start 04/20/19 at 09:00 Polyethylene Glycol (Miralax) 17 gm DAILY PRN PO CONSTIPATION; Start 04/20/19 at 07:00 CATRACHITA RIVERA MD Apr 21, 2019 13:53
== END 2019-04-21 15:42 | disposition home or self-care (01) | DRG 690 ==
LOC: E/R 20:13 → TEL 22:43 → CANBEDREQ 04-17 03:47
PROVIDERS: ADMIT Internal Medicine; ATTEND Internal Medicine
PROC: 0DB68ZX Excision of Stomach, Via Natural or Artificial Opening Endoscopic, Diagnostic (ICD-10-PCS; principal; 2019-04-19 10:00)
DX: N39.0 Urinary tract infection, site not specified (principal); K29.00 Acute gastritis without bleeding; K44.9 Diaphragmatic hernia without obstruction or gangrene; F41.9 Anxiety disorder, unspecified; F32.9 Major depressive disorder, single episode, unspecified; J44.9 Chronic obstructive pulmonary disease, unspecified; I10 Essential (primary) hypertension; I25.10 Atherosclerotic heart disease of native coronary artery without angina pectoris; I25.2 Old myocardial infarction; E78.5 Hyperlipidemia, unspecified; L27.0 Generalized skin eruption due to drugs and medicaments taken internally; G89.4 Chronic pain syndrome; Z90.710 Acquired absence of both cervix and uterus; Z95.5 Presence of coronary angioplasty implant and graft; Z87.891 Personal history of nicotine dependence; Z79.82 Long term (current) use of aspirin; Z82.49 Family history of ischemic heart disease and other diseases of the circulatory system; Z98.1 Arthrodesis status; Z79.02 Long term (current) use of antithrombotics/antiplatelets; Z86.718 Personal history of other venous thrombosis and embolism; T40.2X5A Adverse effect of other opioids, initial encounter; Y92.230 Patient room in hospital as the place of occurrence of the external cause
CPT/HCPCS: 36415; 71045; 74177; 80048; 80053; 81001; 82378; 83690; 83735; 84100; 84443; 84484; 85025; 87081; 87086; 88305; 88312; 93005; 96374; 96375; 97161; J1170; J1200; J1644; J1885; J2185; J2270; J2765; J7040; Q9967